=== PATIENT | female | born 1990 | race Caucasian/White ===

== ENCOUNTER 2016-09-29 12:45 | Outpatient (CLI) | END 2016-09-29 12:46 | disposition home or self-care (01) ==

== ENCOUNTER 2016-10-29 06:12 | Day surgery (SDC) | payer MEDICAID ==
[2016-10-29] MEDS ORDERED: LACTATED RINGERS 1,000 ML IV ONE (06:57)
[2016-10-29] MEDS ORDERED: fentaNYL 250 MCG/5 ML VIAL IVP ONE (09:05)
[2016-10-29] MEDS ORDERED: MIDAZOLAM 2 MG/2 ML VIAL IVP ONE (09:05)
== END 2016-10-29 06:13 | disposition home or self-care (01) ==
PROC: 0DBE8ZX Excision of Large Intestine, Via Natural or Artificial Opening Endoscopic, Diagnostic (ICD-10-PCS; 2016-10-29)
PROC: 0DBP8ZX Excision of Rectum, Via Natural or Artificial Opening Endoscopic, Diagnostic (ICD-10-PCS; principal; 2016-10-29 07:30)
DX: R10.9 Unspecified abdominal pain (principal); K59.09 Other constipation; R19.7 Diarrhea, unspecified; Z87.442 Personal history of urinary calculi; Z80.0 Family history of malignant neoplasm of digestive organs
CPT/HCPCS: 45380; 81025; J3010; J7120

== ENCOUNTER 2018-12-28 06:04 | Day surgery (SDC) | payer BC ==
[2018-12-28] MEDS ORDERED: LACTATED RINGERS 1,000 ML IV ONE ×3 (06:31→09:09)
[2018-12-28] MEDS ORDERED: ceFAZolin 2 GM/50 ML 0 GM/0 ML BAG IV ONE (06:36)
[2018-12-28] MEDS ORDERED: ceFAZolin 2 GM/50 ML 2 GM/50 ML BAG IV ONE (06:40)
--- NOTE | 2018-12-28 06:56 | ANESTHESIA ---
Pre-Anesthesia VS, & Labs - Diagnosis desires sterilization - Procedure laparoscopic salpingectomy Vital Signs: Temp Pulse Resp BP Pulse Ox 36.7 C 108 H 12 118/82 H 96 12/28/18 06:32 12/28/18 06:32 12/28/18 06:32 12/28/18 06:32 12/28/18 06:32 Height 5 ft 3 in Weight (kg) 62.2 kg Body Mass Index 20.3 - NPO >8 hours - Is Patient ?: No - Lab Results Lab results reviewed: Yes Home Medications and Allergies Home Medications: Ambulatory Orders Amitriptyline HCl 75 mg PO DAILY 12/23/18 diphenhydrAMINE [Benadryl] 25 mg PO Q4-6H PRN 12/23/18 Zolpidem [Ambien] 1 tab PO QPM PRN 10/28/16 Amitriptyline HCl 75 mg PO DAILY 12/23/18 diphenhydrAMINE [Benadryl] 25 mg PO Q4-6H PRN 12/23/18 Allergies/Adverse Reactions: Allergies Allergy/AdvReac Type Severity Reaction Status Date / Time meperidine HCl * Allergy Mild Hives Verified 04/22/16 14:48 [From Demerol] Anes History & Medical History - Anesthetic History Anesthesia Complications: reports: No previous complications Family history of Anesthesia Complications: Denies Family history of Malignant Hyperthermia: Denies - Medical History Cardiovascular: reports: None Pulmonary: reports: None Gastrointestinal: reports: None Urinary: reports: Kidney stones Musculoskeletal: reports: None Endocrine/Autoimmune: reports: None Blood Disorders: reports: None Skin: reports: None Smoking Status: Former smoker Psychosocial: reports: Other (insomnia) - Surgical History Eyes Ears Nose Throat (EENT): Myringotomy (tubes), Other Urologic: Kidney stents, Ureterolithotomy (stones) Exam General: Alert, Oriented x3, Cooperative, No acute distress Dental: Other (cap) Mouth Openin Fingerbreadth Neck Mobility: Normal Mallampati classification: II Thyromental Distance: 4-6 cm Respiratory: Lungs clear, Normal breath sounds, No respiratory distress, No accessory muscle use Cardiovascular: Regular rate, Normal S1, Normal S2, No murmurs Mental/Cognitive Status: Alert/Oriented X3, Normal for patient Plan Anesthesia Type: General Consent for Procedure(s) Verified and Reviewed: Yes Code Status: Attempt Resuscitation ASA classification: 2-Mild systemic disease Is this case an emergency?: No
[2018-12-28 06:57] LABS: BASOPHILS # (AUTO) 0.1 10^3/uL (0.0-0.1); BASOPHILS % (AUTO) 1.4 %; EOSINOPHILS # (AUTO) 0.4 10^3/uL (0.0-0.7); EOSINOPHILS % (AUTO) 4.4 %; HGB - HEMOGLOBIN 13.3 g/dL (12.0-16.0); LYMPHOCYTES # (AUTO) 2.2 10^3/uL (1.5-3.5); LYMPHOCYTES % (AUTO) 24.2 %; MEAN CORPUSCULAR HEMOGLOBIN 27.5 pg (27.0-31.0); MEAN CORPUSCULAR VOLUME 83.5 fL (81.0-99.0); MEAN PLATELET VOLUME 8.1 fL (7.9-10.8); MONOCYTES # (AUTO) 0.6 10^3/uL (0.0-1.0); MONOCYTES % (AUTO) 6.2 %; NEUTROPHILS # (AUTO) 5.8 10^3/uL (1.5-6.6); NEUTROPHILS % (AUTO) 63.8 %; PLT - PLATELET COUNT 412 10^3/uL (130-450); RED BLOOD COUNT 4.82 10^6/uL (4.20-5.40); RED CELL DISTRIBUTION WIDTH 15.1 % (12.0-15.0); WHITE BLOOD COUNT 9.2 x10^3/uL (4.8-10.8)
[2018-12-28 07:01] LABS: HCG UR QUAL NEGATIVE
[2018-12-28 07:06] LABS: CREATININE 0.8 mg/dL (0.4-1.0)
[2018-12-28] MEDS ORDERED: BUPIVACAINE 0.25%-EPI 1:200000 PF 30 ML VIAL ONE (07:16)
[2018-12-28] MEDS ORDERED: BUPIVACAINE 0.25%-EPI 1:200000 PF 10 ML VIAL SUBQ ONE (08:23)
[2018-12-28] MEDS ORDERED: NEOSTIGMINE 1 MG/1 ML 10 ML MDV IVP ONE (08:45)
[2018-12-28] MEDS ORDERED: ROCURONIUM 50 MG/5 ML VIAL IVP ONE (08:45)
[2018-12-28] MEDS ORDERED: KETOROLAC 30 MG/ML VIAL IVP ONE (08:45)
[2018-12-28] MEDS ORDERED: PROPOFOL 200 MG/20 ML VIAL IVP ONE (08:45)
[2018-12-28] MEDS ORDERED: ePHEDrine 50 MG/ML VIAL IVP ONE (08:45)
[2018-12-28] MEDS ORDERED: ceFAZolin 2 GM/50 ML BAG IV ONE (08:45)
[2018-12-28] MEDS ORDERED: fentaNYL 100 MCG/2 ML VIAL IVP ONE (08:45)
[2018-12-28] MEDS ORDERED: ACETAMINOPHEN 1,000 MG/100 ML 100 ML IV ONE (08:45)
[2018-12-28] MEDS ORDERED: ONDANSETRON 4 MG/2 ML VIAL IVP ONE (08:45)
[2018-12-28] MEDS ORDERED: LIDOCAINE-MPF 2% 5 ML VIAL IM ONE (08:45)
[2018-12-28] MEDS ORDERED: GLYCOPYRROLATE 1 MG/5 ML VIAL IVP ONE (08:45)
[2018-12-28] MEDS ORDERED: LORazepam 2 MG/ML VIAL IVP PRN (09:01)
[2018-12-28] MEDS ORDERED: oxyCODONE 5 MG TABLET PO PRN (09:01)
[2018-12-28] MEDS ORDERED: ONDANSETRON 4 MG/2 ML VIAL IVP PRN (09:01)
[2018-12-28] MEDS ORDERED: HYDROmorphone 0.5 MG/0.5 ML SYRINGE IVP PRN (09:01)
--- NOTE | 2018-12-28 09:06 | OPERATIVE REPORT ---
Operative Report - General Procedure Date: 12/28/18 Planned Procedure: Bilateral Laproscopic Salpingectomy Pre-Op Diagnosis: undesired fertility Procedure Performed: Bilateral Laproscopic Salpingectomy Post Op Diagnosis: undesired fertility - Procedure Note Primary Surgeon: Brian Navarro MD Anesthesia Provider: Himanshu Leal MD Anesthesia Technique: General ET tube Pathology: Bilateral Tubes IV Fluids (mL): 1,000 Estimated Blood Loss (mL): 5 Urine Output (mL): 50 Complications: none - Other Other Information/Narrative: #[id number]
[2018-12-28] MEDS ORDERED: HYDROmorphone 0.5 MG/0.5 ML SYRINGE ONE (09:21)
--- NOTE | 2018-12-28 09:39 | OPERATIVE REPORT ---
DATE OF SERVICE: 12/28/2018 Physician: Brian Navarro MD PREOPERATIVE DIAGNOSIS: Undesired fertility. POSTOPERATIVE DIAGNOSIS: Undesired fertility. PROCEDURE PERFORMED: Bilateral laparoscopic salpingectomy. SURGEON: Brian Navarro MD ANESTHESIA: General via endotracheal tube. ANESTHESIOLOGIST: Himanshu Meek MD ESTIMATED BLOOD LOSS: 5 mL INTRAVENOUS FLUIDS: 1000 mL URINE OUT: 50 mL FINDINGS: Upon entering the abdominal cavity, the uterus appeared to be free of any injury or diseas e. The tubes were noted to be bilaterally free of adhesions. The appendix appeared to be normal. T he cul-de-sac was clear of adhesions or endometriosis. The ovaries appeared to be somewhat enlarged in size. Both tubes were removed without incident, without evidence of any excessive blood loss. DESCRIPTION OF PROCEDURE: Following adequate endotracheal anesthesia, patient was placed in dorsal l ithotomy position. Timeout was then performed at this time. At this point, she was prepped and drap ed in the usual fashion. A speculum was then placed in the vagina. The cervix was visualized, grasp ed with a single-tooth tenaculum. The cervix and the manipulator were placed in the cervical os, fol lowing which the speculum was removed. The slice plug cutter operator's gloves were changed at this point. Following local anesthesia with 0.25% Marcaine, a stab wound was made in the subumbilical area with a #11 blade . A 5 mm trocar and sheath were introduced under direct visualization on a single pass. Left and ri ght lower quadrant incisions were made following local anesthesia with 0.25% Marcaine with epinephrin e, and then skin incisions were made with an 11-blade and 2 other additional trocars were placed on a single pass. The pelvis was inspected. The liver was inspected, as well as the appendix. The righ t fallopian tube was grasped at the fimbriated end. Then, utilizing the LigaSure, it was cauterized and dissected free from the ovary. Care was taken to stay as close to the tube as possible to decrea se the risk of injury to the ovarian vessels. The mesosalpinx was then cauterized as close to the tu be as possible, all the way up to the cornu. At this point, the cornual area was cauterized and nation sected. The tube was removed through the port without difficulty. The cautery site was inspected. There was no evidence of any bleeding. The left tube was treated in an identical fashion. The mesos alpinx was inspected for bleeding; none was noted. There was no evidence of any injury to the ovaria n vessels. The pelvis was inspected. The ureter on the right-hand side appeared to be somewhat prom inent, otherwise did not appear to be dilated. At this point, the procedure was ended. Both left an d right lower trocars were removed under direct visualization. The CO2 was allowed to escape as much as possible through the subumbilical port and, following this, the port was removed. Both incisions were closed utilizing 4-0 Monocryl subcuticular and then Dermabond was used. The instruments were t hen removed from the vagina. Patient tolerated the procedure well and was taken to Recovery in stabl e condition. Sponge and needle counts were correct. TD: 12/28/2018 09:19
[2018-12-28] MEDS ORDERED: oxyCODONE 5 MG TABLET ONE (09:40)
[2018-12-28 11:00] VITALS: BP 124/78
== END 2018-12-28 06:05 | disposition home or self-care (01) ==
LOC: SDS 06:04
PROVIDERS: ATTEND Obstetrics & Gynecology
PROC: 0UT74ZZ Resection of Bilateral Fallopian Tubes, Percutaneous Endoscopic Approach (ICD-10-PCS; principal; 2018-12-28 07:30)
DX: Z30.2 Encounter for sterilization (principal); Z87.39 Personal history of other diseases of the musculoskeletal system and connective tissue; Z87.442 Personal history of urinary calculi; R33.9 Retention of urine, unspecified; Z98.890 Other specified postprocedural states; Z87.891 Personal history of nicotine dependence
CPT/HCPCS: 51702; 58661; 80048; 81025; 85025; 99282; 99283; A9270; J0131; J0690; J1170; J7120

== ENCOUNTER 2018-12-28 21:46 | Emergency (ER) | payer BC ==
--- NOTE | 2018-12-28 21:56 | ED Physician Documentation ---
History of Present Illness - Stated complaint Stated Complaint: FEMALE /POST SURGERY - Chief complaint Chief Complaint: Abd Pain - History obtained from History obtained from: Patient, Family - History of Present Illness Timing: Today Pain level max: 7 Pain level now: 5 - Additonal information Additional information: 28-year-old female is status post tubal ligation earlier today. Since that time is been unable to void well. Having lower abdominal pain. No fevers. No vomiting. 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 : Kidney stones HEENT: Chronic vision loss, Other Psych: Depression, Anxiety, Panic attacks Musculoskeletal: None Derm: None - Past Surgical History Past Surgical History: Yes HEENT: Myringotomy (tubes), Other - Present Medications Home Medications: Ambulatory Orders Medication Instructions Recorded Confirmed Zolpidem [Ambien] 1 tab PO QPM PRN 10/28/16 12/28/18 Amitriptyline HCl 75 mg PO DAILY 12/23/18 12/28/18 diphenhydrAMINE [Benadryl] 25 mg PO Q4-6H PRN 12/23/18 12/28/18 - Allergies Allergies/Adverse Reactions: Allergies Allergy/AdvReac Type Severity Reaction Status Date / Time meperidine HCl * Allergy Mild Hives Verified 12/28/18 21:59 [From Demerol] - Social History Does the pt smoke?: No Smoking Status: Former smoker Does the pt drink ETOH?: Yes Does the pt have substance abuse?: No - Immunizations Immunizations are current?: Yes - POLST Patient has POLST: No PD ED PE NORMAL - Vitals Vital signs reviewed: Yes - General General: Alert and oriented X 3, No acute distress - HEENT HEENT: Moist mucous membranes - Cardiac Cardiac: RRR - Respiratory Respiratory: No respiratory distress, Clear bilaterally - Abdomen Abdomen: Soft, Other (Tender to palpation suprapubic) - Derm Derm: Warm and dry - Extremities Extremities: No edema - Neuro Neuro: Alert and oriented X 3 Results - Vitals Vitals: Vital Signs - 24 hr 12/28/18 21:50 Temperature 36.6 C Heart Rate 120 H Respiratory 20 Rate Blood Pressure 133/90 H O2 Saturation 98 Oxygen O2 Source Room air PD MEDICAL DECISION MAKING - ED course Complexity details: re-evaluated patient, considered differential, d/w patient, d/w senior solutions consultant (Dr. Navarro recommends betancourt catheter for home and follow up in office.) ED course: 28-year-old female with acute urinary retention status post surgery today. Betancourt catheter placed and feels better. Leg bag applied. Will follow up with gynecology for removal. Patient counseled regarding signs and symptoms for which I believe and urgent re-evaluation would be necessary. Patient with good understanding of and agreement to plan and is comfortable going home at this time This document was made in part using voice recognition software. While efforts are made to proofread this document, sound alike and grammatical errors may occur. Departure - Departure Disposition: 01 Home, Self Care Clinical Impression: Acute urinary retention Condition: Good Instructions: ED Catheter Care Betancourt, ED Retention Urinary Female Follow-Up: Re Ledezma DNP [Primary Care Provider] - Brian Navarro MD [Provider Admit Priv/Credential] - Comments: Follow-up with Dr. Navarro in 1-2 days for catheter removal and voiding trial. This is likely secondary to the anesthesia. Return if you worsen.
[2018-12-28 21:59] VITALS: BP 133/90
[2018-12-28] MEDS ORDERED: oxyCODONE 5 MG TABLET PO STA (22:25)
[2018-12-28] MEDS ORDERED: ACETAMINOPHEN 325 MG TABLET PO STA (22:25)
== END 2018-12-28 22:48 | disposition home or self-care (01) ==
LOC: ED 21:46
DX: R33.9 Retention of urine, unspecified (principal); Z98.890 Other specified postprocedural states; Z87.891 Personal history of nicotine dependence
CPT/HCPCS: 51702; 99282; 99283

== ENCOUNTER 2018-12-29 03:58 | Observation (INO) | payer BC ==
--- NOTE | 2018-12-29 04:11 | ED Physician Documentation ---
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 No: Fever, Hematemesis Improved by: Other (no ameliorating factors) Worsened by: Moving, Position Recently seen: Emergency Dept, Surgery - Additonal information Additional information: underwent tubal ligation yesterday. presented to this ED last night for urinary retention, betancourt catheter was placed and presenting symptoms resolved. 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 She has some lower abdominal/pelvic pain that is no worse than earlier tonight. Review of Systems Constitutional: denies: Fever, Chills, Sweats Cardiac: reports: Chest pain / pressure. denies: Palpitations, Pedal edema Respiratory: reports: Reviewed and negative GI: reports: Abdominal Pain, Nausea, Vomiting. 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 : Kidney stones HEENT: Chronic vision loss, Other Psych: Depression, Anxiety, Panic attacks Musculoskeletal: None Derm: None - Past Surgical History Past Surgical History: Yes /CT SCAN TECHNOLOGIST: Tubal ligation HEENT: Myringotomy (tubes), Other - Present Medications Home Medications: Ambulatory Orders Medication Instructions Recorded Confirmed Zolpidem [Ambien] 1 tab PO QPM PRN 10/28/16 12/28/18 Amitriptyline HCl 75 mg PO DAILY 12/23/18 12/28/18 diphenhydrAMINE [Benadryl] 25 mg PO Q4-6H PRN 12/23/18 12/28/18 - Allergies Allergies/Adverse Reactions: Allergies Allergy/AdvReac Type Severity Reaction Status Date / Time meperidine HCl * Allergy Mild Hives Verified 12/29/18 04:11 [From Demerol] - Social History Does the pt smoke?: No Smoking Status: Former smoker Does the pt drink ETOH?: Yes Does the pt have substance abuse?: No - Immunizations Immunizations are current?: Yes - POLST Patient has POLST: No PD ED PE NORMAL - Vitals Vital signs reviewed: Yes - General General: Alert and oriented X 3, Well developed/nourished, Other (actively vomiting during HPI (most of HPI from spouse, but patient is able to answer some questions with brief answers)) - HEENT HEENT: PERRL, EOMI - Neck Neck: Supple, no meningeal sign - Cardiac Cardiac: No murmur - Respiratory Respiratory: No respiratory distress, Clear bilaterally - Abdomen Abdomen: Soft, Non distended, Other (mild tenderness across lower abdomen c/w recent procedure. there is no tenderness across mid/upper abdomen, no rebound or guarding; surgical sites (bilateral lower quadrants and umbilicus) are C/D/I with tissue adhesive layer in place) - Back Back: No CVA TTP - Derm Derm: Normal color, Warm and dry - Extremities Extremities: No edema PD ED PE EXPANDED - Cardiac Cardiac: Tachy, Regular Rhythm Results - Vitals Vitals: Vital Signs - 24 hr 12/29/18 12/29/18 12/29/18 04:00 04:35 04:57 Temperature 36.3 C L Heart Rate 136 H 130 H 115 H Respiratory 24 13 10 L Rate Blood Pressure 135/84 H 126/66 126/66 O2 Saturation 96 95 93 Oxygen O2 Source Room air - Labs Labs: Laboratory Tests 12/29/18 12/29/18 04:20 04:20 WBC 12.9 H RBC 4.25 Hgb 11.7 L Hct 34.9 L MCV 82.0 MCH 27.6 MCHC 33.6 RDW 15.1 H Plt Count 448 MPV 8.3 Neut # (Auto) 7.7 H Lymph # (Auto) 4.0 H [place] # (Auto) 0.8 Eos # (Auto) 0.4 Baso # (Auto) 0.2 H Absolute Nucleated RBC 0.00 Nucleated RBC % 0.0 Sodium 136 Potassium 3.5 Chloride 102 Carbon Dioxide 24 Anion Gap 10.0 BUN 8 Creatinine 0.7 Estimated GFR (MDRD) 99 Glucose 154 H Calcium 8.8 Total Bilirubin 0.8 AST 20 ALT 12 Alkaline Phosphatase 44 Total Protein 6.9 Albumin 3.6 Globulin 3.3 Albumin/Globulin Ratio 1.1 Lipase 27 PD MEDICAL DECISION MAKING - ED course Complexity details: reviewed old records, reviewed results, re-evaluated p atient, considered differential, d/w patient ED course: After over 1 liter IV NS and 8mg IV zofran, patient reports some improvement in symptoms, although still very nauseas and dizzy with movement. She continues to be tachycardic, although this improved from 140s ST to 110s-120s. She would benefit from ongoing IV hydration, antinauseants, and further observation in the hospital before considering d/c home. D/W Dr. Navarro, will admit to his service. Departure - Departure Disposition: ED Place in Observation Clinical Impression: Vomiting Qualifiers: Vomiting type: unspecified Vomiting Intractability: intractable Nausea presence: with nausea Qualified Code(s): R11.2 - Nausea with vomiting, unspecified Condition: Stable
[2018-12-29] MEDS ORDERED: ONDANSETRON 4 MG/2 ML VIAL IVP STA (04:22)
[2018-12-29] MEDS ORDERED: SODIUM CHLORIDE 0.9% 1,000 ML IV STA (04:22)
[2018-12-29] MEDS ORDERED: ONDANSETRON 4 MG/2 ML VIAL ONE (04:30)
[2018-12-29 04:31] LABS: BASOPHILS # (AUTO) 0.2 10^3/uL (0.0-0.1); BASOPHILS % (AUTO) 1.2 %; EOSINOPHILS # (AUTO) 0.4 10^3/uL (0.0-0.7); EOSINOPHILS % (AUTO) 2.9 %; HGB - HEMOGLOBIN 11.7 g/dL (12.0-16.0); LYMPHOCYTES % (AUTO) 30.7 %; MEAN CORPUSCULAR HEMOGLOBIN 27.6 pg (27.0-31.0); MEAN CORPUSCULAR HGB CONC 33.6 g/dL (32.0-36.0); MEAN PLATELET VOLUME 8.3 fL (7.9-10.8); MONOCYTES # (AUTO) 0.8 10^3/uL (0.0-1.0); NEUTROPHILS # (AUTO) 7.7 10^3/uL (1.5-6.6); NEUTROPHILS % (AUTO) 59.2 %; PLT - PLATELET COUNT 448 10^3/uL (130-450); RED BLOOD COUNT 4.25 10^6/uL (4.20-5.40); RED CELL DISTRIBUTION WIDTH 15.1 % (12.0-15.0); WHITE BLOOD COUNT 12.9 x10^3/uL (4.8-10.8)
[2018-12-29 04:48] LABS: ALBUMIN 3.6 g/dL (3.2-5.5); ALBUMIN/GLOBULIN RATIO 1.1 (1.0-2.2); BILIRUBIN,TOTAL 0.8 mg/dL (0.2-1.0); CALCIUM 8.8 mg/dL (8.5-10.3); CREATININE 0.7 mg/dL (0.4-1.0); TOTAL PROTEIN 6.9 g/dL (6.7-8.2)
[2018-12-29] MEDS ORDERED: SODIUM CHLORIDE 0.9% 1,000 ML IV ONE (05:29)
[2018-12-29] MEDS ORDERED: PROMETHAZINE INJ 25 MG in SODIUM CHLORIDE 0.9% 50 ML IV STA (05:44)
[2018-12-29] MEDS ORDERED: oxyCODONE 5 MG TABLET PO STA (05:55)
[2018-12-29] MEDS ORDERED: LACTATED RINGERS 1,000 ML IV SCH ×2 (06:00→15:00)
[2018-12-29] MEDS ORDERED: SODIUM CHLORIDE FLUSH 0.9% 10 ML SYRINGE ONE (06:49)
[2018-12-29 08:02] LABS: MEAN CORPUSCULAR HEMOGLOBIN 27.7 pg (27.0-31.0); MEAN CORPUSCULAR VOLUME 81.5 fL (81.0-99.0); MEAN PLATELET VOLUME 8.3 fL (7.9-10.8); RED BLOOD COUNT 4.34 10^6/uL (4.20-5.40); RED CELL DISTRIBUTION WIDTH 15.2 % (12.0-15.0); WHITE BLOOD COUNT 16.7 x10^3/uL (4.8-10.8)
[2018-12-29] MEDS ORDERED: ALPRAZolam 0.25 MG TABLET PO PRN (08:08)
[2018-12-29] MEDS ORDERED: fentaNYL 100 MCG/2 ML VIAL IVP PRN (08:09)
[2018-12-29] MEDS ORDERED: IOVERSOL 320 100 ML VIAL IVP ONE ×2 (08:19→08:51)
[2018-12-29 08:37] LABS: BILIRUBIN,URINE NEGATIVE (NEGATIVE); GLUCOSE, URINE (UA) NEGATIVE (NEGATIVE); KETONES,URINE (UA) TRACE mg/dL (NEGATIVE); LEUKOCYTE ESTERASE, URINE NEGATIVE (NEGATIVE); NITRITE,URINE NEGATIVE (NEGATIVE); OCCULT BLOOD,URINE NEGATIVE (NEGATIVE); PH,URINE 7.5 PH (5.0-7.5); PROTEIN,URINE NEGATIVE (NEGATIVE); UROBILINOGEN,URINE 0.2 (NORMAL) E.U./dL (NORMAL)
[2018-12-29 08:41] LABS: CLARITY,URINE CLEAR (CLEAR)
[2018-12-29] MEDS ORDERED: KETOROLAC 30 MG/ML VIAL IVP PRN (08:55)
--- NOTE | 2018-12-29 09:01 | PROVIDER PROGRESS NOTE ---
Subjective - General Admit Date: 12/29/18 Procedure Date: 12/28/18 Post Op Days: 1 Procedure Performed: Laptoscopic Bilateral Salpingectomy - Review of Systems Wound/Incisions: positive: Healing well Gastrointestinal: positive: Nausea, Abdominal pain (Pt C/O lower abdominal pain. 5/10 experiencing nausia with vomiting this AM) Genitourinary: positive: Urgency (feels the need to void betancourt draining clear urine) Objective - Patient Data Reviewed Vital Signs: Yes Vital Signs: Vital Signs x48h Temp Pulse Pulse Resp BP BP Pulse Ox 12/29/18 08:34 36.4 C L 122 H 18 122/77 98 12/29/18 06:45 36.3 C L 135 H 18 126/75 100 12/29/18 06:07 112 H 10 L 117/73 98 12/29/18 04:57 115 H 10 L 126/66 93 12/29/18 04:35 130 H 13 126/66 95 12/29/18 04:00 36.3 C L 136 H 24 135/84 H 96 Weight: Weight 12/27/18 12/28/18 12/29/18 23:59 23:59 23:59 Weight (kg) 61.2 kg Intake & Output: Intake and Output Totals x24h 12/27/18 12/28/18 12/29/18 23:59 23:59 23:59 Intake Total 2051 Output Total 1475 Balance 576 - Lab Results Lab Results: 12/29/18 07:36 12/29/18 04:20 Other Lab Results: Lab Results x24hrs 12/29/18 12/29/18 12/29/18 Range/Units 08:30 07:36 04:20 WBC 16.7 H (4.8-10.8) x10^3/uL RBC 4.34 (4.20-5.40) 10^6/uL Hgb 12.0 (12.0-16.0) g/dL Hct 35.4 L (37.0-47.0) % MCV 81.5 (81.0-99.0) fL MCH 27.7 (27.0-31.0) pg MCHC 34.0 (32.0-36.0) g/dL RDW 15.2 H (12.0-15.0) % Plt Count 386 (130-450) 10^3/uL MPV 8.3 (7.9-10.8) fL Neut # (Auto) (1.5-6.6) 10^3/uL Lymph # (Auto) (1.5-3.5) 10^3/uL [place] # (Auto) (0.0-1.0) 10^3/uL Eos # (Auto) (0.0-0.7) 10^3/uL Baso # (Auto) (0.0-0.1) 10^3/uL Absolute Nucleated RBC x10^3/uL Nucleated RBC % /100WBC Sodium 136 (135-145) mmol/L Potassium 3.5 (3.5-5.0) mmol/L Chloride 102 (101-111) mmol/L Carbon Dioxide 24 (21-32) mmol/L Anion Gap 10.0 (6-13) BUN 8 (6-20) mg/dL Creatinine 0.7 (0.4-1.0) mg/dL Estimated GFR (MDRD) 99 (>89) Glucose 154 H (70-100) mg/dL Calcium 8.8 (8.5-10.3) mg/dL Total Bilirubin 0.8 (0.2-1.0) mg/dL AST 20 (10-42) IU/L ALT 12 (10-60) IU/L Alkaline Phosphatase 44 (42-121) IU/L Total Protein 6.9 (6.7-8.2) g/dL Albumin 3.6 (3.2-5.5) g/dL Globulin 3.3 (2.1-4.2) g/dL Albumin/Globulin Ratio 1.1 (1.0-2.2) Lipase 27 (22-51) U/L Urine Color LIGHT YELLOW Urine Clarity CLEAR (CLEAR) Urine pH 7.5 (5.0-7.5) PH Ur Specific [place] <=1.005 (1.002-1.030) Urine Protein NEGATIVE (NEGATIVE) mg/dL Urine Glucose (UA) NEGATIVE (NEGATIVE) mg/dL Urine Ketones TRACE (NEGATIVE) mg/dL Urine Occult Blood NEGATIVE (NEGATIVE) Urine Nitrite NEGATIVE (NEGATIVE) Urine Bilirubin NEGATIVE (NEGATIVE) Urine Urobilinogen 0.2 (NORMAL) (NORMAL) E.U./dL Ur Leukocyte Esterase NEGATIVE (NEGATIVE) Ur Microscopic Review NOT INDICATED Urine Culture Comments NOT INDICATED 12/29/18 Range/Units 04:20 WBC 12.9 H (4.8-10.8) x10^3/uL RBC 4.25 (4.20-5.40) 10^6/uL Hgb 11.7 L (12.0-16.0) g/dL Hct 34.9 L (37.0-47.0) % MCV 82.0 (81.0-99.0) fL MCH 27.6 (27.0-31.0) pg MCHC 33.6 (32.0-36.0) g/dL RDW 15.1 H (12.0-15.0) % Plt Count 448 (130-450) 10^3/uL MPV 8.3 (7.9-10.8) fL Neut # (Auto) 7.7 H (1.5-6.6) 10^3/uL Lymph # (Auto) 4.0 H (1.5-3.5) 10^3/uL [place] # (Auto) 0.8 (0.0-1.0) 10^3/uL Eos # (Auto) 0.4 (0.0-0.7) 10^3/uL Baso # (Auto) 0.2 H (0.0-0.1) 10^3/uL Absolute Nucleated RBC 0.00 x10^3/uL Nucleated RBC % 0.0 /100WBC Sodium (135-145) mmol/L Potassium (3.5-5.0) mmol/L Chloride (101-111) mmol/L Carbon Dioxide (21-32) mmol/L Anion Gap (6-13) BUN (6-20) mg/dL Creatinine (0.4-1.0) mg/dL Estimated GFR (MDRD) (>89) Glucose (70-100) mg/dL Calcium (8.5-10.3) mg/dL Total Bilirubin (0.2-1.0) mg/dL AST (10-42) IU/L ALT (10-60) IU/L Alkaline Phosphatase (42-121) IU/L Total Protein (6.7-8.2) g/dL Albumin (3.2-5.5) g/dL Globulin (2.1-4.2) g/dL Albumin/Globulin Ratio (1.0-2.2) Lipase (22-51) U/L Urine Color Urine Clarity (CLEAR) Urine pH (5.0-7.5) PH Ur Specific [place] (1.002-1.030) Urine Protein (NEGATIVE) mg/dL Urine Glucose (UA) (NEGATIVE) mg/dL Urine Ketones (NEGATIVE) mg/dL Urine Occult Blood (NEGATIVE) Urine Nitrite (NEGATIVE) Urine Bilirubin (NEGATIVE) Urine Urobilinogen (NORMAL) E.U./dL Ur Leukocyte Esterase (NEGATIVE) Ur Microscopic Review Urine Culture Comments - Imaging Results Radiology Imaging: positive: Prelim report reviewed (CT negative for hematoma, and bowel perforation) - Current Medications Current Medications: Current Medications Generic Name Dose Route Start Last Admin Trade Name Freq PRN Reason Stop Dose Admin Lactated Ringer's 1,000 mls @ 125 mls/hr 12/29/18 06:00 12/29/18 06:51 Lr IV 125 mls/hr .Q8H JAH Administration - Physical Exam Wound/Incisions: positive: Healing well General Appearance: positive: Moderate distress Respiratory: positive: Chest non-tender, No respiratory distress, Breath sounds nml Cardiovascular: positive: Regular rate & rhythm (Tachy cardia), No murmur, No gallop Abdomen: positive: Nml bowel sounds, No distention, Tenderness (Lower abdomin) Back: negative: CVA tenderness (R), CVA tenderness (L) Extremities: negative: Calf tenderness Impression/Plan - Problem List Problem List: POD# [address] op pain negative CT urinary retension Pain control
--- NOTE | 2018-12-29 09:25 | CT Report ---
Reason: POST OP ABDOMINAL PAIN. Procedure Date: 12/29/2018 Accession Number: [id number] / [id number] Procedure: CT - Abdomen/Pelvis W CPT Code: FULL RESULT: EXAM: CT ABDOMEN AND PELVIS EXAM DATE: 12/29/2018 08:45 AM. CLINICAL HISTORY: POST OP ABDOMINAL PAIN. COMPARISONS: 09/29/2016 TECHNIQUE: Routine helical CT imaging was performed through the abdomen and pelvis. IV contrast: CE. Enteric contrast: No. Reconstructions: Coronal and sagittal. In accordance with CT protocol optimization, one or more of the following dose reduction techniques were utilized for this exam: automated exposure control, adjustment of mA and/or KV based on patient size, or use of iterative reconstructive technique. FINDINGS: Lung Bases: Hypoventilatory changes in the dependent lungs. No pleural effusion. Liver: Normal. No masses. Gallbladder/Bile Ducts: Contracted. No biliary ductal dilatation. Spleen: Normal. Pancreas: Normal. Adrenal Glands: Normal. Kidneys: No solid masses or stones. Uniform enhancement. Mildly prominent right renal pelvis. Peritoneal Cavity/Bowel: Pneumoperitoneum and subcutaneous emphysema consistent with a history of recent surgery. No abnormal collections or pathologic adenopathy. Small amount of free fluid in the pelvis. The appendix is seen and appears normal. Moderate amount of right colon fecal material Pelvic Organs: Air and catheter within the bladder. Unremarkable appearing uterus and ovaries. Vasculature: No aneurysms or other significant abnormality. Bones: No significant abnormality. Other: None. IMPRESSION: Pneumoperitoneum and subcutaneous emphysema with a small amount of pelvic free fluid consistent with recent surgery. Otherwise unremarkable CT abdomen and pelvis. [facility]
[2018-12-29 15:28] VITALS: BP 102/65
== END 2018-12-29 17:25 | disposition home or self-care (01) ==
LOC: ED 03:58 → MS2 05:47
PROVIDERS: ADMIT Obstetrics & Gynecology; ATTEND Obstetrics & Gynecology
DX: G89.18 Other acute postprocedural pain (principal); R33.9 Retention of urine, unspecified; R11.2 Nausea with vomiting, unspecified; H54.7 Unspecified visual loss; F32.9 Major depressive disorder, single episode, unspecified; F41.0 Panic disorder [episodic paroxysmal anxiety]; Z87.442 Personal history of urinary calculi; Z87.891 Personal history of nicotine dependence
CPT/HCPCS: 36415; 74177; 80053; 81003; 83690; 85025; 85027; 96361; 96365; 96375; 99284; A9270; G0378; J7040; J7120; Q9967; 81001; 87086; 96374

== ENCOUNTER 2018-12-30 08:00 | Outpatient (CLI) | payer BC ==
[2018-12-30 19:16] LABS: BILIRUBIN,URINE NEGATIVE (NEGATIVE); GLUCOSE, URINE (UA) NEGATIVE (NEGATIVE); KETONES,URINE (UA) NEGATIVE (NEGATIVE); LEUKOCYTE ESTERASE, URINE NEGATIVE (NEGATIVE); NITRITE,URINE NEGATIVE (NEGATIVE); OCCULT BLOOD,URINE TRACE-INTA (NEGATIVE); PROTEIN,URINE NEGATIVE (NEGATIVE); UROBILINOGEN,URINE 0.2 (NORMAL) E.U./dL (NORMAL)
[2018-12-30 19:23] LABS: CLARITY,URINE CLEAR (CLEAR)
[2018-12-30 19:24] LABS: BACTERIA,URINE Rare /HPF (None Seen); RBC,URINE 0-5 /HPF (0-5); SQUAMOUS EPITHELIAL CELL,UR MOD Squamous (<= Few)
== END 2018-12-30 23:59 | disposition home or self-care (01) ==
LOC: LAB.R 08:00
PROVIDERS: ATTEND Obstetrics & Gynecology
DX: R33.9 Retention of urine, unspecified (principal); Z98.890 Other specified postprocedural states
CPT/HCPCS: 81001; 87086

== ENCOUNTER 2020-06-04 11:24 | Outpatient (CLI) | payer BC, MEDICAID ==
[2020-06-04 14:51] LABS: BASOPHILS # (AUTO) 0.1 10^3/uL (0.0-0.1); BASOPHILS % (AUTO) 0.9 %; EOSINOPHILS # (AUTO) 0.1 10^3/uL (0.0-0.7); HGB - HEMOGLOBIN 12.3 g/dL (12.0-16.0); LYMPHOCYTES # (AUTO) 1.7 10^3/uL (1.5-3.5); LYMPHOCYTES % (AUTO) 25.6 %; MEAN CORPUSCULAR HEMOGLOBIN 28.6 pg (27.0-31.0); MEAN CORPUSCULAR HGB CONC 33.1 g/dL (32.0-36.0); MEAN CORPUSCULAR VOLUME 86.5 fL (81.0-99.0); MEAN PLATELET VOLUME 11.6 fL (7.9-10.8); MONOCYTES # (AUTO) 0.5 10^3/uL (0.0-1.0); MONOCYTES % (AUTO) 6.9 %; NEUTROPHILS # (AUTO) 4.4 10^3/uL (1.5-6.6); NEUTROPHILS % (AUTO) 65.2 %; PLT - PLATELET COUNT 380 10^3/uL (130-450); RED CELL DISTRIBUTION WIDTH 13.8 % (12.0-15.0); WHITE BLOOD COUNT 6.7 x10^3/uL (4.8-10.8)
[2020-06-04 15:16] LABS: ALBUMIN 4.2 g/dL (3.2-5.5); ALBUMIN/GLOBULIN RATIO 1.4 (1.0-2.2); BILIRUBIN,TOTAL 0.9 mg/dL (0.2-1.0); CALCIUM 9.3 mg/dL (8.5-10.3); CREATININE 0.6 mg/dL (0.4-1.0); TOTAL PROTEIN 7.1 g/dL (6.7-8.2)
== END 2020-06-04 11:25 | disposition home or self-care (01) ==
LOC: LAB.S 11:24
PROVIDERS: ATTEND Registered Nurse
DX: R06.83 Snoring (principal); F41.9 Anxiety disorder, unspecified; G47.00 Insomnia, unspecified; F32.9 Major depressive disorder, single episode, unspecified
CPT/HCPCS: 36415; 80053; 84443; 85025

== ENCOUNTER 2020-08-01 15:16 | Outpatient (CLI) | payer MEDICAID ==
[2020-08-01 16:29] VITALS: BP 105/74
--- NOTE | 2020-08-01 16:29 | SLEEP CARE CONSULTATION ---
Information from patient questionnaire entered by Aislinn Pack. I have reviewed and concur with the information entered by Aislinn Pack. This document represents the service I personally performed and the decisions made by me, Nancy Kent ARNP. History of Present Illness Service Date and Time: 08/01/2020 1516 Reason for Visit: New patient Chief Complaint: reports: Insomnia, Unrefreshed sleep, Snoring, Excessive daytime sleepiness, Frequent awakenings at night, Other (takes sleep aids to be able to sleep; go up to 4 days without sleeping). denies: Observed pauses in breathing, Fatigue Date of Onset: Always Usual bedtime: Varies Time it takes to fall asleep: A while if at all Snores at night: Yes (So I've been told) Observed to quit breathing while asleep: No Sleeps alone due to snoring: No Number of times waking at night: 3-5 Reasons for waking at night: reports: Other (No known reason). denies: Choking, Snoring, Gasping for air Toss, Turn, or Twitch while sleeping: Yes Recalls having dreams: Yes Usually gets out of bed at: Varies Feels refreshed in the morning: No Morning headache: Yes (sometimes; 3-4 times a week; last most of day without medication) Sleepy or fatigued during the day: Yes Ever fallen asleep while driving: No Takes day naps: Yes (sometimes; 1 every 2 weeks; lasts 30 minutes to 1.5 hours) Dreams during day naps: Yes (sometimes) Prior sleep studies: No Additional HPI information: I had the pleasure of seeing RICHARD LOZANO today regarding the possibility of her having a sleep disorder. Her current complaints are insomnia, snoring, unrefreshed sleep, and frequent night awakening. She has always had difficulties with getting a good night's sleep. She has been known to not sleep for days, the longest being about 4 days straight. She has a varied scheduled for work so she gets up anywhere from 5 AM to 8 AM. She goes to bed at various times as well. Her father has sleep apnea but she does not think he uses his breathing machine. Her sister also has sleep apnea but does not use a machine as far as she knows. - Parasomnia Symptoms Ever been unable to move upon waking from sleep: No Walks in sleep: No Talks in sleep: No Ever acted out dreams in sleep: Yes (rarely) Ever felt weak in the knees when startled or emotional: No Bothered by creepy, crawly, restless sensations in legs: No Problems with memory or concentration: Yes (both) Subjective Initial [place] Sleepiness Scale score: 6 (in 2019) Past Medical History Past Medical History: reports: Anxiety (insomnia). denies: Hypertension, Congestive Heart Failure, Diabetes, Coronary Heart Disease, Arrythmia, Hypothyroidism, Anemia, Depression, Mood disorder, GERD, Attention deficit Social History The patient's occupation is a [employer] and [employer]. Patient is and lives in [place]. Have you smoked in the past 12 months: Yes Cigarettes per day (20/pack): 20 Years of smokin Quit date: 2012 Smoking Pack Years: 5.0 Alcohol use: Yes Alcohol amount and frequency: 1 or 2, 3 times a week Caffeine use: Yes Caffeine amount and frequency: 3 times a week Family History Family history of sleep disordered breathing: Yes (Dad, sister) Family Hx Sleep Apnea: Father: Snoring, Sleep apnea - Untreated, Sibling: Snoring, Sleep apnea - Untreated Allergies and Home Medications Drug allergies reviewed: Yes (Demerol) Home medication list reviewed: Yes Allergy and home medication list: Zolpidem 5 mg 3x a week Review of Systems Weight loss over past 5 years: 30 Cardiovascular: denies: high blood pressure, palpitations, chest pain, irregular heart rate or pulse, leg or foot swelling Respiratory: denies: shortness of breath Gastrointestinal: denies: heartburn, difficulty swallowing Neurological: reports: headaches. denies: seizure, head trauma, speech dysfunction, gait or balance problems Psychiatric: reports: anxiety. denies: Attention Deficit Hyperactivity, depression, mood disorder, claustrophobia Ear/Nose/Throat: reports: wisdom teeth removed. denies: nasal congestion, sinus problems, nose bleeds, dry mouth/throat, injury to nose, tonsillectomy Endocrine: reports: sluggishness, too hot or cold Musculoskeletal: reports: joint pain, back pain Immunologic: reports: allergies to food or environment, other (TMJ) Physical Exam Blood Pressure: 105/74 Cuff size: wrist Heart Rate: 84 O2 Saturation: 99 Height: 5 ft 3 in Weight: 128 lb Body Mass Index: 22.6 BMI Classification: Healthy weight Neck circumference: 13.25 (inches) HEENT: No craniofacial malformation Nostrils: patent to airflow Turbinates: swollen Septum: midline Mouth and throat: narrow oropharynx Uvula visualization: 50% Mallampati Class II Tongue: normal in size Tonsils: 1+ Chin and jaw: normal size and position Neck: normal w/o lymphadenopathy or thyromegaly Heart: regular rate and rhythm Lungs: clear bilaterally Impression and Plan 1. Suspected Obstructive Sleep Apnea-Hypopnea Syndrome, as suggested by a history of loud and irregular snoring, morning headache, frequent awakening during the night, unrefreshed sleep, cognitive impairment, and excessive daytime sleepiness. I reviewed with patient that a narrow oropharynx and obesity are common predisposing factors for obstructive sleep apnea-hypopnea syndrome. I recommend proceeding to polysomnography to confirm the diagnosis and to assess severity. If the patient has significant sleep disordered breathing, a manual CPAP titration study will also be performed to find the optimal treatment pressure. I informed the patient of what the sleep studies involve and after some discussion, obtained agreement to proceed. The pathophysiology of obstructive sleep apnea-hypopnea syndrome was discussed with the patient and [facility] risks of cardiovascular and cerebrovascular disease if not treated. [facility] brochure for obstructive sleep apnea-hypopnea syndrome given and reviewed. Risks of drowsy driving discussed in detail and patient advised to avoid long distance driving and to pulley worker at the first sign of drowsiness. Patient agreed to plan. [facility] drowsy driving brochure given. * Schedule polysomnography +- manual CPAP titration study. * Avoid long distance driving or driving when feeling sleepy. * Avoid alcohol, sedative and muscle relaxant around bedtime. * Attempt to lose weight. * Review instructions provided by trained office staff on how to prepare for the sleep study. * Return for follow-up after sleep study completed. Visit Type: In Office Time Spent with Patient (minutes): 34 Provider Statement: I spent 100% of the Face to Face Visit with the patient with greater than 50% spent counseling the patient and coordination of care.
== END 2020-08-01 15:17 | disposition home or self-care (01) ==
LOC: SC 15:16
PROVIDERS: ATTEND Nurse Practitioner Family
DX: G47.10 Hypersomnia, unspecified (principal); R51.9 Headache, unspecified; G47.8 Other sleep disorders; R06.83 Snoring; R41.89 Other symptoms and signs involving cognitive functions and awareness
CPT/HCPCS: 99203; 99212

== ENCOUNTER 2020-09-01 19:56 | Outpatient (CLI) | payer MEDICAID | END 2020-09-01 19:57 | disposition home or self-care (01) | LOC: SC 19:56 | PROVIDERS: ATTEND Nurse Practitioner Family | DX: G47.10 Hypersomnia, unspecified (principal); G47.8 Other sleep disorders; G47.00 Insomnia, unspecified; R06.83 Snoring | CPT/HCPCS: 95810 ==

== ENCOUNTER 2020-09-12 17:01 | Outpatient (CLI) | payer MEDICAID ==
--- NOTE | 2020-09-12 16:10 | SLEEP CARE CONSULTATION ---
Information from patient questionnaire entered by Aislinn Pack. I have reviewed and concur with the information entered by Aislinn Pack. This document represents the service I personally performed and the decisions made by , Nancy Kent ARNP. History of Present Illness Service Date and Time: 09/12/2020 1600 Initial [place] Sleepiness Scale score: 6 (in 2020) Current [place] Sleepiness Scale score: 3 Additional HPI information: RICHARD LOZANO returns via Telehealth visit for follow up and results of the recently performed polysomnography. The patient was informed of the following findings: patient had no significant sleep disordered breathing with an average AHI of 0.1 and alina oxygen saturation of 92%. I explained the pathophysiology behind obstructive sleep apnea. Patient does not have sleep apnea and was advised how weight gain could increase the risk of developing sleep apnea in the future. Patient has light to moderate snoring. Snoring can be reduced by weight loss. Weight loss is best achieved with diet co nsult. Patient instructed to contact PCP for referral. Snoring can also be treated with an oral appliance from a dentist. Advised to check insurance coverage. In addition, an ENT evaluation can be do to see if other treatment is indicated. Patient counseled not drink alcohol less than 4 hours before bedtime as it can increase snoring and apnea. Patient was cautioned about risks of drowsy driving until sleepiness symptoms resolve. Sleep Study - Results Type of Sleep Study: Polysomnography Prior sleep studies: No Polysomnography/Home Sleep Study results: IMPRESSION: The quality of the study is good. The patient had normal sleep efficiency. The sleep architecture was normal as well. Respiratory monitoring showed no significant sleep disordered breathing (AHI = 0.1) or hypoxia (alina oxygen saturation of 92%). The patient slept adequately in supine position (supine AHI = 0.3; nonsupine = 0.00). Snore was light to moderate in intensity. There was no significant periodic leg movement of sleep. Cardiac rhythm was normal sinus rhythm without significant arrhythmia. No abnormal behavior (parasomnia) observed during the night. Physical Exam Vital signs obtained and entered by: Telehealth visit to limit exposure during Covid pandemic Height: 5 ft 3 in Impression and Plan 1. Snoring but no significant sleep disordered breathing. Patient advised that often weight loss will reduce snoring as well as apnea risk. An oral appliance can also be used for snoring. This would require a dental consultation. Patient cautioned not to use other online appliances as can cause bite issues. A list of accredited dentists in area and one local dentist who makes oral appliances given. Patient is advised to check if insurance will cover. An ENT consult can also be helpful to determine if any other treatment is an option. Patient concerned about still waking up 3-4 times at night which reduces her sleep time. She does have some issues with anxiety which may be contributing to her waking up, interrupting her sleep. I encouraged her to discuss this with her PCP to see if treatment of anxiety might help her sleep better. She voiced understanding and agreement to plan. * Attempt to lose weight * Avoid alcohol consumption near bedtime * The patient is cautioned about driving until sleepiness is completely resolved. * Return as needed. Visit Type: Telehealth Video Video Type: Doximity Patient Location: Work Location of Provider: Office Patient agrees and consents to this telehealth visit type: Yes Patient agrees to have their insurance billed: Yes Time Spent with Patient (minutes): 15 Provider Statement: I spent 100% of the Telehealth Video Call with the patient with greater than 50% spent counseling the patient and coordination of care.
== END 2020-09-12 17:02 | disposition home or self-care (01) ==
LOC: SC 17:01
PROVIDERS: ATTEND Nurse Practitioner Family
DX: R06.83 Snoring (principal)

== ENCOUNTER 2021-02-25 18:22 | Emergency (ER) | payer MEDICAID ==
--- OUTSIDE RECORDS SUMMARY | 2021-02-25 18:26 | EXTERNAL MEDICAL SUMMARY RPT | Continuity of Care Document ---
:1990 Demographics Phone Unavailable Preferred Language Thai Marital Status Unknown Anabaptist Affiliation Unknown Race Unknown Ethnic Group Unknown Author Organization [place] Address [address] [phone] Phone Care Team Providers Name Role Phone Katus Unavailable Unavailable Allergies Encounters Medications Problems Procedures date description facility 20210104 [facility] Results Vital Signs date measurement value source 20210104 weight_standard 124.98 lb 20210104 weight_metric 56.69 kg 20210104 temperature_standard 98 F 20210104 temperature_metric 36.67 C 20210104 respiration_rate 18 /min 20210104 height_standard 63 in 20210104 height_metric 160.02 cm 20210104 heart_rate 76 /min 20210104 BP_systolic 108 mm[Hg] 20210104 BP_diastolic 70 mm[Hg] 20210104 BMI 22.1 kg/m2
[2021-02-25] MEDS ORDERED: ONDANSETRON 4 MG/2 ML VIAL IM STA (19:08)
[2021-02-25] MEDS ORDERED: KETOROLAC 60 MG/2 ML VIAL IM STA (19:08)
[2021-02-25] MEDS ORDERED: HYDROmorphone 1 MG/ML CARPUJECT IM STA ×2 (19:08→20:24)
[2021-02-25] MEDS ORDERED: CYCLOBENZAPRINE 10 MG TABLET PO STA (19:09)
--- NOTE | 2021-02-25 19:11 | ED Physician Documentation ---
History of Present Illness - Stated complaint Stated Complaint: BACK PX - Chief complaint Chief Complaint: Trauma Ch/Bk - Additonal information Additional information: 30-year-old female presents emergency department for evaluation of acute low back pain. Reports it began this afternoon when she attempted to lift a heavy cinderblock. She felt a pop and pull in her mid spine that radiated down to her left leg. She now has some paresthesias in the left medial and lateral thigh as well as some in the right thigh. No loss of motor strength. No saddle anesthesia or bowel or bladder incontinence. In 2019 she did have a microdiscectomy at L4-L5. She is concerned that she may have exacerbated this. Patient has taken no meds prior to arrival. On evaluation she appears acutely uncomfortable sitting in a reclined position in triage chairs. Review of Systems Constitutional: denies: Fever Eyes: reports: Reviewed and negative Ears: reports: Reviewed and negative Nose: reports: Reviewed and negative Throat: reports: Reviewed and negative Cardiac: reports: Reviewed and negative Respiratory: reports: Reviewed and negative GI: reports: Reviewed and negative : reports: Reviewed and negative Skin: reports: Reviewed and negative Musculoskeletal: reports: Back pain, Extremity pain (Right leg left leg) Neurologic: reports: Reviewed and negative PD PAST MEDICAL HISTORY - Past Medical History Past Medical History: Yes Cardiovascular: None Respiratory: None Neuro: None Endocrine/Autoimmune: None GI: None 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: Ovarian cysts : Kidney stones HEENT: Chronic vision loss, Other Psych: Depression, Anxiety, Panic attacks Musculoskeletal: None Derm: None - Past Surgical History Past Surgical History: Yes Ortho: Spine surgery /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: Tubal ligation HEENT: Myringotomy (tubes), Other - Present Medications Home Medications: Ambulatory Orders Medication Instructions Recorded Confirmed Zolpidem [Ambien] 5 mg PO QPM PRN 10/28/16 02/25/21 diphenhydrAMINE [Benadryl] 25 mg PO Q4-6H PRN 12/23/18 02/25/21 Cyclobenzaprine [Flexeril] 10 mg PO TID PRN 6 Days #20 tablet 02/25/21 HYDROcod/ACETAM 5/325 [Waldo 5/325] 1 tablet PO BID #10 tablet 02/25/21 predniSONE [Deltasone] 40 mg PO DAILY 5 Days #10 tablet 02/25/21 - Allergies Allergies/Adverse Reactions: Allergies Allergy/AdvReac Type Severity Reaction Status Date / Time meperidine HCl * Allergy Mild Hives Verified 02/25/21 18:35 [From Demerol] - Social History Does the pt smoke?: No Smoking Status: Former smoker Does the pt drink ETOH?: Yes Does the pt have substance abuse?: No - Immunizations Immunizations are current?: Yes - POLST Patient has POLST: No PD ED PE EXPANDED - General General: Alert, In Pain - Cardiac Cardiac: Regular Rate, Radial strong equal, Pedal strong equal, Cap refill < 2 sec. No: Murmur Present - Respiratory Respiratory: Clear to ausultation elvia. No: Distress, Labored - Abdomen Abdomen: Normal Bowel sounds. No: Tender to palpation - Back Back: Soft tissue tenderness (Diffuse soft tissue tenderness across the lower lumbar paraspinous without erythema swelling or crepitus. No midline vertebral body tenderness elicited.), CVA TTP right, CVA TTP left, Other (Motor strength 5 of 5 bilateral lower extremities. Patient able to raise thighs against resistance. 2+ patellar reflexes bilaterally.). No: Vertebral tenderness - Neuro Neuro: Alert and Oriented X 3, CNII-XII intact - GCS Eye Opening: Spontaneous Motor: Obeys Commands Verbal: Oriented Total: 15 Results - Vitals Vitals: Vital Signs - 24 hr 02/25/21 18:35 Temperature 37.1 C Heart Rate 97 Respiratory 18 Rate Blood Pressure 99/67 O2 Saturation 100 Oxygen O2 Source Room air Departure - Departure Disposition: 01 Home, Self Care Clinical Impression: Acute low back pain Qualifiers: Back pain laterality: bilateral Sciatica presence: with sciatica Sciatica laterality: bilateral sciatica Qualified Code(s): M54.42 - Lumbago with sciatica, left side; M54.41 - Lumbago with sciatica, right side Condition: Stable Record reviewed to determine appropriate education?: Yes Follow-Up: Wendi Leon MD [Physician No Access] - Prescriptions: predniSONE [Deltasone] 40 mg PO DAILY 5 Days #10 tablet Cyclobenzaprine [Flexeril] 10 mg PO TID PRN 6 Days #20 tablet PRN Reason: Spasms HYDROcod/ACETAM 5/325 [Waldo 5/325] 1 tablet PO BID #10 tablet Comments: Carmelita I hope that your low back is feeling better soon. I would like you to fill the prescription for the prednisone and begin taking every day for the next 5 days. Your first dose was given here in the emergency department. I have also prescribed a limited amount of hydrocodone as well as Flexeril which is a muscle relaxer. Do not use the hydrocodone and Flexeril together they can be excessively sedating. Also do not drive if taking hydrocodone. I am prescribing a short course of narcotic pain medication for you. These are potentially dangerous and addictive medications that should be used carefully. These medications may constipate you. Take an [id number] stool softener (docusate) twice daily with plenty of water while taking these medications. If you go 24 hours without a bowel movement, take [id number] miralax, per package instructions. Do not drink or drive while taking these medications. If you received narcotic or sedating medications while in the emergency department, do not drive for 24 hours. Store this medication in a safe, secure place and out of reach of children. It is a violation of federal law to give or sell this medication to another person or to use in a manner other than prescribed. The ED will not refill narcotic prescriptions, including prescriptions lost or stolen. To dispose of unwanted medications: 1. [facility] at [address] in [place] has a medication drop box. They accept prescription medications (in pill form) Wednesday through Wednesday 9:00 a.m. to 5:00 p.m. 2. The [facility] Police Department accepts prescription medications (in pill form only) for disposal year round. Call for more information. 3. Contact the [facility] for the next [facility] sponsored prescription drug collection event. , [phone], or [phone]; Note that many narcotic pain relievers also contain Tylenol/acetaminophen. P lease ensure that your total dose of acetaminophen from all sources does not exceed 3 g (3000 mg) per day. Please call your back surgeon Dr. Leon and schedule follow-up as soon as possible. Return to the emergency department if you develop incontinence of bowel or bladder, cannot move your legs, develop fevers or have numbness in your genital area.
--- OUTSIDE RECORDS SUMMARY | 2021-02-25 19:40 | EXTERNAL MEDICAL SUMMARY RPT | Continuity of Care Document ---
:1990 Demographics Phone Unavailable Preferred Language Irish Marital Status Unknown Adventism Affiliation Unknown Race Unknown Ethnic Group Unknown Author Organization [place] Address [address] [phone] Phone Care Team Providers Name Role Phone Katus Unavailable Unavailable Allergies Encounters Medications Problems Procedures date description facility 20210104 [facility] Results Vital Signs date measurement value source 20210104 weight_standard 124.98 lb 20210104 weight_metric 56.69 kg 20210104 temperature_standard 98 F 20210104 temperature_metric 36.67 C 20210104 respiration_rate 18 /min 20210104 height_standard 63 in 20210104 height_metric 160.02 cm 20210104 heart_rate 76 /min 20210104 BP_systolic 108 mm[Hg] 20210104 BP_diastolic 70 mm[Hg] 20210104 BMI 22.1 kg/m2
[2021-02-25] MEDS ORDERED: predniSONE 20 MG TABLET PO STA (20:24)
[2021-02-25] MEDS ORDERED: ONDANSETRON ODT 4 MG TABLET TL STA (20:24)
[2021-02-25 20:53] VITALS: BP 112/62
== END 2021-02-25 20:51 | disposition home or self-care (01) ==
LOC: ED 18:22
DX: M54.42 Lumbago with sciatica, left side (principal); M54.41 Lumbago with sciatica, right side; Z87.891 Personal history of nicotine dependence
CPT/HCPCS: 96372; 99283; 99284; A9270; J1170; J7512; Q0162

== ENCOUNTER 2021-03-18 11:00 | Outpatient (CLI) | payer MEDICAID ==
[2021-03-18 19:26] LABS: BILIRUBIN,URINE NEGATIVE (NEGATIVE); GLUCOSE, URINE (UA) NEGATIVE (NEGATIVE); KETONES,URINE (UA) NEGATIVE (NEGATIVE); LEUKOCYTE ESTERASE, URINE NEGATIVE (NEGATIVE); NITRITE,URINE POSITIVE (NEGATIVE); OCCULT BLOOD,URINE NEGATIVE (NEGATIVE); PH,URINE 6.5 PH (5.0-7.5); PROTEIN,URINE NEGATIVE (NEGATIVE); UROBILINOGEN,URINE 0.2 (NORMAL) E.U./dL (NORMAL)
[2021-03-18 19:30] LABS: CLARITY,URINE CLOUDY (CLEAR)
[2021-03-18 19:52] LABS: BACTERIA,URINE Many /HPF (None Seen); RBC,URINE 0-5 /HPF (0-5); SQUAMOUS EPITHELIAL CELL,UR MOD Squamous (<= Few); WBC,URINE 0-3 /HPF (0-5)
== END 2021-03-18 23:59 | disposition home or self-care (01) ==
LOC: LAB.R 11:00
PROVIDERS: ATTEND Registered Nurse
DX: R30.0 Dysuria (principal)
CPT/HCPCS: 81001; 87086

== ENCOUNTER 2021-05-12 19:21 | Outpatient (CLI) | payer MEDICAID | END 2021-05-12 19:22 | disposition home or self-care (01) | LOC: COV 19:21 | PROVIDERS: ATTEND Family Medicine | DX: U07.1 COVID-19 (principal) ==

== ENCOUNTER 2021-08-05 07:51 | Outpatient (CLI) | payer MEDICAID ==
--- NOTE | 2021-08-05 08:40 | CARDIAC PROCEDURE NOTE ---
Stress Test Report Service Date: 08/05/21 Service Time: 08:00 Ordering Provider: Marcie Vee FNP-C Indication for Test: Recurrent syncopal episodes. Significant Medical History: -Carmelita is referred for stress testing after experiencing several intermittent, brief syncopal episodes over the past 8 years or so. She describes approximately 3 more concerning episodes, during which she fell with some minor trauma. The episodes occur under varying circumstances, sometimes following change in position (orthostatic), sometimes after being upright for a significant period of time, sometimes with activity. She describes a syndrome beginning with tingling in her feet, radiating proximally upwards to her head, and when global and severe, the onset of syncope. She awakens fairly quickly without sequelae such as confusion or incontinence. 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 She does not work out regularly given these obligations, but feels that her exercise tolerance remains intact. She denies concerning cardiovascular symptoms such as chest discomfort undue shortness of breath palpitations and edema. She has been trying to keep well-hydrated but may have an opportunity to add electrolyte-containing drinks, such as Gatorade. Cardiac Risk Factors: No history of hypertension, known dyslipidemia, diabetes. Former smoker, but quit 10 yrs ago. She is not aware of close family members with history of cardiovascular disease. Type of Stress Test: Exercise Treadmill Test (ETT) Procedure: -Exercise Treadmill Test- After signing informed consent, the patient performed treadmill exercise using a Torrey protocol. The patient exercised for 10 minutes 9 seconds and achieved a peak heart rate of 160 (85 percent predicted maximum heart rate for age), and an estimated workload of 12.1 METS. The test was terminated due to fatigue/shortness of breath following attainment of her target heart rate. Resting heart rate: 94 Peak heart rate: 160 Normal response to exercise. Resting BP: 104/73 Peak BP: 142/75 Normal BP response to exercise. Rhythm during exercise: Sinus rhythm throughout. Symptoms: Mild lightheadedness and foot tingling starting in stage 3, with lightheadedness resolving rapidly in recovery; "tingly legs" gradually resolved in recovery. EKG at rest showed normal sinus rhythm and is fully normal, including the QTc interval. EKG at peak stress showed J-point depression with upsloping ST segments, NOT meeting diagnostic criteria for ischemia. In Recovery heart rate and blood pressure appropriately decreased to near baseline levels. No imaging was ordered with this stress test. Issa Ayoub MD, was present throughout this treadmill stress study and supervised it in its entirety. Summary: 1) Exercise tolerance slightly above avereage for age as evidenced by MARY KAY of - 5%. 2) Normal resting EKG. No resting QTc prolongation present. 3) Adequate level of exercise was achieved on this treadmill stress test. Patient experienced her symptoms to a mild degree. 4) Normal BP response to exercise. 5) No ischemic changes by EKG criteria were seen at peak stress. CONCLUSIONS: 1) Low risk Torrey exercise treadmill test results. 2) Rapid recovery following syncopal episodes without sequelae and lack of history of serious injury suggest benign cause of syncope, for which we discussed the following recommendations: (a) be attentive to remaining well hydrated, with goal of ingesting nearly equivalent amounts overall of water and electrolyte containing drinks (e.g. Gatorade); (b) continue liberal intake of table salt; (c) try rebreathing in a "lunch type" brown paper bag at onset of tingling symptoms, as hyperventilation could be contributing to the episodes. 3) If episodes recur in spite of above hygenic measures, further evaluation by a polysilicon preparation worker (e.g. ambulatory rhythm monitoring, echocardiogram, tilt table testing) may be appropriate.
== END 2021-08-05 07:52 | disposition home or self-care (01) ==
LOC: DI 07:51
PROVIDERS: ATTEND Registered Nurse
DX: R55 Syncope and collapse (principal); Z87.891 Personal history of nicotine dependence
CPT/HCPCS: 93017

== ENCOUNTER 2021-12-02 11:40 | Outpatient (CLI) | payer MEDICAID ==
[2021-12-02 12:09] LABS: BASOPHILS # (AUTO) 0.1 10^3/uL (0.0-0.1); BASOPHILS % (AUTO) 0.9 %; EOSINOPHILS # (AUTO) 0.2 10^3/uL (0.0-0.7); EOSINOPHILS % (AUTO) 2.5 %; HCT - HEMATOCRIT 40.3 % (37.0-47.0); HGB - HEMOGLOBIN 13.7 g/dL (12.0-16.0); LYMPHOCYTES # (AUTO) 1.7 10^3/uL (1.5-3.5); MEAN CORPUSCULAR HEMOGLOBIN 28.7 pg (27.0-31.0); MEAN CORPUSCULAR VOLUME 84.5 fL (81.0-99.0); MEAN PLATELET VOLUME 10.2 fL (7.9-10.8); MONOCYTES # (AUTO) 0.5 10^3/uL (0.0-1.0); MONOCYTES % (AUTO) 6.3 %; NEUTROPHILS # (AUTO) 5.5 10^3/uL (1.5-6.6); PLT - PLATELET COUNT 284 10^3/uL (130-450); RED BLOOD COUNT 4.77 10^6/uL (4.20-5.40); RED CELL DISTRIBUTION WIDTH 13.4 % (12.0-15.0); WHITE BLOOD COUNT 7.9 x10^3/uL (4.8-10.8)
[2021-12-02 12:38] LABS: THYROID STIMULATING HORMONE 1.16 uIU/mL (0.34-5.60)
[2021-12-02 12:44] LABS: ALBUMIN 4.4 g/dL (3.2-5.5); ALBUMIN/GLOBULIN RATIO 1.6 (1.0-2.2); ALKALINE PHOSPHATASE 31 IU/L (42-121); ALT ALANINE AMINOTRANSFERASE 13 IU/L (10-60); AST ASPARTATE AMINOTRANSFERASE 15 IU/L (10-42); BILIRUBIN,TOTAL 0.9 mg/dL (0.2-1.0); BUN - BLOOD UREA NITROGEN 15 mg/dL (6-20); CARBON DIOXIDE - CO2 25 mmol/L (21-32); CHLORIDE 103 mmol/L (101-111); CHOL/HDL RATIO 2.8 (<4.4); CHOLESTEROL 164 mg/dL; CREATININE 0.7 mg/dL (0.4-1.0); GFR - MDRD 97 (>89); GLUCOSE 89 mg/dL (70-100); HDL CHOLESTEROL 59 mg/dL; LDL CHOLESTEROL,CALCULATED 97 mg/dL; LDL/HDL RATIO 1.6 (<4.4); POTASSIUM 4.2 mmol/L (3.5-5.0); SODIUM 138 mmol/L (135-145); TOTAL PROTEIN 7.1 g/dL (6.7-8.2); TRIGLYCERIDES 42 mg/dL; VLDL CHOLESTEROL 8 mg/dL
== END 2021-12-02 11:41 | disposition home or self-care (01) ==
LOC: LAB 11:40
PROVIDERS: ATTEND Registered Nurse
DX: Z13.228 Encounter for screening for other metabolic disorders (principal); Z13.220 Encounter for screening for lipoid disorders; Z13.29 Encounter for screening for other suspected endocrine disorder; Z13.0 Encounter for screening for diseases of the blood and blood-forming organs and certain disorders involving the immune mechanism
CPT/HCPCS: 36415; 80053; 80061; 83721; 84443; 85025

== ENCOUNTER 2022-09-11 13:38 | Outpatient (CLI) | payer BC | END 2022-09-11 13:39 | disposition home or self-care (01) | LOC: LAB 13:38 | PROVIDERS: ATTEND Nurse Practitioner | DX: N64.52 Nipple discharge (principal) | CPT/HCPCS: 36415; 84146 ==

== ENCOUNTER 2022-09-25 12:24 | Outpatient (CLI) | payer BC ==
--- NOTE | 2022-09-29 13:01 | Ultrasound Report ---
LIMITED ULTRASOUND OF LEFT BREAST: 09/25/2022 CLINICAL: Patient returns today to evaluate an asymmetry in the left breast. Comparison is made to exam dated: 09/25/2022 mammogram - [facility]. Color flow and real-time ultrasound of the left breast lower aspect and retroareolar regions were pe rformed. Hays scale images of the real-time examination were reviewed. No significant abnormalities were seen sonographically in the left breast. Specifically, no finding to correspond to the patient's palpable abnormalities in lower quadrants, or to explain nipple discha rge. IMPRESSION: PROBABLY BENIGN There is no sonographic correlate to the areas of clinical concern in the left breast, or explanation for nipple discharge. Discharge is likely physiologic based on description. A follow-up left mammogram and an ultrasound in 6 months is recommended to demonstrate stability giv en lack of comparisons and extremely dense breast tissue. Findings and recommendations were conveyed to the patient at time of exam. This exam was interpreted at Station ID: [id number]. Electronically Signed By: Sophia may/:09/25/2022 14:22:19 Ultrasound BI-RADS: 3 Probably benign BI-RADS CATEGORY: (3) - 3 Mammo and US [id number] 6 month follow-up LATERALITY: (L)
--- NOTE | 2022-09-29 13:01 | Ultrasound Report ---
LIMITED ULTRASOUND OF RIGHT BREAST: 09/25/2022 CLINICAL: Patient returns today to evaluate a focal asymmetries in the right breast. Comparison is made to exam dated: 09/25/2022 mammogram - [facility]. Real-time ultrasound of the right breast 8-9 o'clock region was performed. Hays scale images of the real-time examination were reviewed. No significant abnormalities were seen sonographically in the right breast. Specifically, no finding to correspond to the patient's mammographic abnormalities. IMPRESSION: PROBABLY BENIGN There is no sonographic correlate to the patient's mammographic abnormalities. A follow-up right mammogram and an ultrasound in 6 months is recommended to demonstrate stability gi keyana lack of comparison exams and extremely dense tissue. Findings and recommendations were conveyed to the patient at time of exam. This exam was interpreted at Station ID: [id number]. Electronically Signed By: Sophia may/:09/25/2022 14:20:10 Ultrasound BI-RADS: 3 Probably benign BI-RADS CATEGORY: (3) - 3 Mammo and US [id number] 6 month follow-up LATERALITY: (R)
--- NOTE | 2022-09-29 13:01 | Mammography Report ---
BILATERAL DIGITAL DIAGNOSTIC MAMMOGRAM 3D/2D WITH EXAGGERATED CC: 09/25/2022 CLINICAL: Baseline exam. Nipple discharge, left breast, not bloody. Palpable left breast lump by phys elderan. No prior exams were available for comparison. Both breasts are extremely dense, which lowers the sensitivity of mammography (category d />75% gland ular tissue). There is a 9 mm round asymmetry with an obscured and circumscribed margin in the right breast at 8 o' clock posterior depth. There also is a possible 9 mm round low density asymmetry with an obscured margin in the right breast at 8 o'clock middle depth. There is a possible 8 mm oval asymmetry with an obscured and circumscribed margin in the left breast at 6 o'clock anterior depth. No other significant masses or calcifications are seen in either breast. Specifically, no finding to correspond to the providers's lower quadrant palpable abnormalities. IMPRESSION: INCOMPLETE: NEEDS ADDITIONAL IMAGING EVALUATION The 9 mm round asymmetry in the right breast at 8 o'clock posterior depth is indeterminate. An ultra sound is recommended. The possible 9 mm round low density asymmetry in the right breast at 8 o'clock middle depth is indete rminate. An ultrasound is recommended. The possible 8 mm oval asymmetry in the left breast at 6 o'clock anterior depth is indeterminate. An ultrasound is recommended. Ultrasound of lower left breast is recommended due to providers indication of palpable abnormalities in these locations. Bilateral breast ultrasound was performed immediately following this exam. Based on the Tyrer Cuzick model (a risk assessment model) the patients lifetime risk is 11.5% and he r 10 year risk is 0.7%. According to the ACR, ACS, and NCCN guidelines, an annual breast MRI exam zeeshan ng with mammogram is recommended if the patients lifetime risk is 20% or greater. This exam was interpreted at Station ID: [id number]. NOTE: For mammograms, a report in lay terms will be sent to the patient. Approximately 15% of breast malignancies will not be visualized mammographically. In the management of a palpable breast mass, a negative mammogram must not discourage biopsy of a clinically suspicious lesion. Electronically Signed By: Sophia may/:09/25/2022 13:50:49 ACR BI-RADS Category 0: Incomplete 3340F PARENCHYMAL PATTERN: (VD) - The breast(s) demonstrate(s) extremely dense parenchyma, limiting the sen sitivity of mammography. BI-RADS CATEGORY: (0) - 0 Ultrasound [id number] Immediate follow-up LATERALITY: (B)
== END 2022-09-25 12:25 | disposition home or self-care (01) ==
LOC: DI 12:24
PROVIDERS: ATTEND Nurse Practitioner
DX: N64.52 Nipple discharge (principal); R92.8 Other abnormal and inconclusive findings on diagnostic imaging of breast

== ENCOUNTER 2023-03-04 07:49 | Outpatient (CLI) | payer BC ==
--- NOTE | 2023-03-04 10:53 | Ultrasound Report ---
LIMITED ULTRASOUND OF RIGHT BREAST: 03/04/2023 CLINICAL: Nipple discharge, both breasts, not bloody. Comparison is made to exams dated: 03/04/2023 mammogram, 09/25/2022 ultrasound, and 09/25/2022 mammogr [facility]. Ultrasound of the right breast retroareolar was performed. Hays scale images of the real-time examin ation were reviewed. IMPRESSION: PROBABLY BENIGN There is no abnormality seen in the right breast to correspond with the non-bloody discharge from the nipple, however, clinical correlation and clinical followup are recommended. A follow-up mammogram and possible ultrasound in 6 months are recommended to demonstrate stability of the bilateral mammographic asymmetries. This exam was interpreted at Station ID: [id number]. Electronically Signed By: Jayy Putnam M.D. /:03/04/2023 08:52:56 Ultrasound BI-RADS: 3 Probably benign BI-RADS CATEGORY: (3) - 3 Mammo and US [id number] 6 month follow-up LATERALITY: (B)
--- NOTE | 2023-03-04 10:53 | Ultrasound Report ---
LIMITED ULTRASOUND OF LEFT BREAST: 03/04/2023 CLINICAL: Nipple discharge, both breasts, not bloody. Comparison is made to exams dated: 03/04/2023 mammogram and 09/25/2022 ultrasound - [facility]. Ultrasound of the left breast retroareolar was performed. Hays scale images of the real-time examin ation were reviewed. IMPRESSION: PROBABLY BENIGN There is no abnormality seen in the left breast to correspond with the non-bloody discharge from the nipple, however, clinical correlation and clinical followup are recommended. A follow-up mammogram and possible ultrasound in 6 months are recommended to demonstrate stability of the bilateral mammographic asymmetries. This exam was interpreted at Station ID: [id number]. Electronically Signed By: Jayy Putnam M.D. lc/:03/04/2023 08:53:25 Ultrasound BI-RADS: 3 Probably benign BI-RADS CATEGORY: (3) - 3 Mammo and US [id number] 6 month follow-up LATERALITY: (B)
--- NOTE | 2023-03-04 10:53 | Mammography Report ---
BILATERAL DIGITAL DIAGNOSTIC MAMMOGRAM 3D/2D: 03/04/2023 CLINICAL: Patient returns for a 6 month follow up of bilateral breasts. Comparison is made to exam dated: 09/25/2022 mammogram - [facility]. Both breasts are extremely dense, which lowers the sensitivity of mammography (category d />75% gland ular tissue). There is a 9 mm round asymmetry with an obscured and circumscribed margin in the right breast at 8 o' clock posterior depth. There also is a possible 9 mm round low density asymmetry with an obscured margin in the right breast at 8 o'clock middle depth. There is a possible 8 mm oval asymmetry with an obscured and circumscribed margin in the left breast at 6 o'clock anterior depth. No other significant masses or calcifications are seen in either breast. IMPRESSION: INCOMPLETE: NEEDS ADDITIONAL IMAGING EVALUATION The 9 mm round asymmetry in the right breast at 8 o'clock posterior depth is stable. The possible 9 mm round low density asymmetry in the right breast at 8 o'clock middle depth is stable . The possible 8 mm oval asymmetry in the left breast at 6 o'clock anterior depth is stable. These had no previous sonographic correlate and are probably benign. There is no abnormality seen in either breast to correspond with the non-bloody discharge from the ni pple, however, ultrasound is recommended. Based on the Tyrer Cuzick model (a risk assessment model) the patients lifetime risk is 11.5% and he r 10 year risk is 0.7%. According to the ACR, ACS, and NCCN guidelines, an annual breast MRI exam zeeshan ng with mammogram is recommended if the patients lifetime risk is 20% or greater. This exam was interpreted at Station ID: [id number]. NOTE: For mammograms, a report in lay terms will be sent to the patient. Approximately 15% of breast malignancies will not be visualized mammographically. In the management of a palpable breast mass, a negative mammogram must not discourage biopsy of a clinically suspicious lesion. Electronically Signed By: Jayy Putnam M.D. lc/:03/04/2023 08:50:48 ACR BI-RADS Category 0: Incomplete 3340F PARENCHYMAL PATTERN: (VD) - The breast(s) demonstrate(s) extremely dense parenchyma, limiting the sen sitivity of mammography. BI-RADS CATEGORY: (0) - 0 Ultrasound [id number] Immediate follow-up LATERALITY: (B)
== END 2023-03-04 07:50 | disposition home or self-care (01) ==
LOC: DI 07:49
PROVIDERS: ATTEND Nurse Practitioner
DX: N64.52 Nipple discharge (principal)

== ENCOUNTER 2023-04-27 10:49 | Outpatient (CLI) | payer BC ==
[2023-04-27 11:04] LABS: BASOPHILS # (AUTO) 0.1 10^3/uL (0.0-0.1); EOSINOPHILS # (AUTO) 0.2 10^3/uL (0.0-0.7); EOSINOPHILS % (AUTO) 1.6 %; HCT - HEMATOCRIT 38.6 % (37.0-47.0); HGB - HEMOGLOBIN 13.1 g/dL (12.0-16.0); LYMPHOCYTES # (AUTO) 1.9 10^3/uL (1.5-3.5); MEAN CORPUSCULAR HEMOGLOBIN 28.6 pg (27.0-31.0); MEAN CORPUSCULAR HGB CONC 33.9 g/dL (32.0-36.0); MEAN CORPUSCULAR VOLUME 84.3 fL (81.0-99.0); MEAN PLATELET VOLUME 10.2 fL (7.9-10.8); MONOCYTES # (AUTO) 0.6 10^3/uL (0.0-1.0); MONOCYTES % (AUTO) 6.4 %; NEUTROPHILS # (AUTO) 6.6 10^3/uL (1.5-6.6); NEUTROPHILS % (AUTO) 70.5 %; PLT - PLATELET COUNT 312 10^3/uL (130-450); RED BLOOD COUNT 4.58 10^6/uL (4.20-5.40); WHITE BLOOD COUNT 9.4 x10^3/uL (4.8-10.8)
[2023-04-27 11:18] LABS: ALBUMIN/GLOBULIN RATIO 1.4 (1.0-2.2); ALKALINE PHOSPHATASE 41 IU/L (42-121); ALT ALANINE AMINOTRANSFERASE 9 IU/L (10-60); AST ASPARTATE AMINOTRANSFERASE 12 IU/L (10-42); BILIRUBIN,TOTAL 0.6 mg/dL (0.2-1.0); BUN - BLOOD UREA NITROGEN 11 mg/dL (6-20); CARBON DIOXIDE - CO2 28 mmol/L (21-32); CHLORIDE 106 mmol/L (101-111); CHOL/HDL RATIO 2.9 (<4.4); CHOLESTEROL 144 mg/dL; CREATININE 0.6 mg/dL (0.6-1.3); GFR - MDRD 114 (>89); GLUCOSE 95 mg/dL (74-104); HDL CHOLESTEROL 50 mg/dL; LDL CHOLESTEROL,CALCULATED 82 mg/dL; LDL/HDL RATIO 1.6 (<4.4); POTASSIUM 3.8 mmol/L (3.5-4.5); SODIUM 136 mmol/L (135-145); TOTAL PROTEIN 6.8 g/dL (6.4-8.9); TRIGLYCERIDES 59 mg/dL (48-352); VLDL CHOLESTEROL 12 mg/dL
== END 2023-04-27 10:50 | disposition home or self-care (01) ==
LOC: LAB 10:49
PROVIDERS: ATTEND Registered Nurse
DX: Z13.228 Encounter for screening for other metabolic disorders (principal); Z13.220 Encounter for screening for lipoid disorders; Z13.29 Encounter for screening for other suspected endocrine disorder; Z13.0 Encounter for screening for diseases of the blood and blood-forming organs and certain disorders involving the immune mechanism
CPT/HCPCS: 36415; 80053; 80061; 83721; 84443; 85025

== ENCOUNTER 2023-09-13 08:00 | Outpatient (CLI) | payer BC | END 2023-09-13 23:59 | disposition home or self-care (01) | LOC: LAB.S 08:00 | PROVIDERS: ATTEND Registered Nurse | DX: R82.79 Other abnormal findings on microbiological examination of urine (principal); R82.4 Acetonuria; R31.9 Hematuria, unspecified; R30.0 Dysuria | CPT/HCPCS: 87086 ==

== ENCOUNTER 2023-09-13 13:02 | Outpatient (CLI) | payer BC ==
[2023-09-13 13:22] LABS: BASOPHILS % (AUTO) 0.8 %; EOSINOPHILS # (AUTO) 0.1 10^3/uL (0.0-0.7); EOSINOPHILS % (AUTO) 1.4 %; HCT - HEMATOCRIT 35.6 % (37.0-47.0); HGB - HEMOGLOBIN 11.9 g/dL (12.0-16.0); LYMPHOCYTES # (AUTO) 1.6 10^3/uL (1.5-3.5); LYMPHOCYTES % (AUTO) 31.4 %; MEAN CORPUSCULAR HEMOGLOBIN 27.4 pg (27.0-31.0); MEAN CORPUSCULAR HGB CONC 33.4 g/dL (32.0-36.0); MEAN PLATELET VOLUME 11.2 fL (7.9-10.8); MONOCYTES # (AUTO) 0.4 10^3/uL (0.0-1.0); MONOCYTES % (AUTO) 7.8 %; NEUTROPHILS # (AUTO) 2.9 10^3/uL (1.5-6.6); NEUTROPHILS % (AUTO) 58.4 %; PLT - PLATELET COUNT 313 10^3/uL (130-450); RED BLOOD COUNT 4.34 10^6/uL (4.20-5.40); RED CELL DISTRIBUTION WIDTH 13.9 % (12.0-15.0)
[2023-09-13 13:31] LABS: ALBUMIN 4.3 g/dL (3.2-5.5); ALBUMIN/GLOBULIN RATIO 1.7 (1.0-2.2); BILIRUBIN,TOTAL 0.8 mg/dL (0.2-1.0); CALCIUM 9.7 mg/dL (8.5-10.3); CREATININE 0.6 mg/dL (0.6-1.3); TOTAL PROTEIN 6.8 g/dL (6.4-8.9)
[2023-09-13 13:39] LABS: ESTIMATED AVERAGE GLUCOSE 94 mg/dL (70-100); HEMOGLOBIN A1c% 4.9 % (4.27-6.07)
[2023-09-13 14:06] LABS: THYROID STIMULATING HORMONE 1.32 uIU/mL (0.34-5.60)
== END 2023-09-13 13:03 | disposition home or self-care (01) ==
LOC: LAB 13:02
PROVIDERS: ATTEND Registered Nurse
DX: R82.79 Other abnormal findings on microbiological examination of urine (principal); R82.4 Acetonuria; Z87.442 Personal history of urinary calculi; R31.9 Hematuria, unspecified
CPT/HCPCS: 36415; 80053; 83036; 84443; 85025

== ENCOUNTER 2023-09-13 16:22 | Emergency (ER) | payer BC ==
[2023-09-13] MEDS ORDERED: SODIUM CHLORIDE 0.9% 1,000 ML IV STA ×2 (16:52→18:36)
[2023-09-13] MEDS ORDERED: KETOROLAC 15 MG/ML VIAL IVP STA (16:54)
[2023-09-13 16:55] LABS: BASOPHILS % (AUTO) 0.5 %; EOSINOPHILS # (AUTO) 0.1 10^3/uL (0.0-0.7); EOSINOPHILS % (AUTO) 1.6 %; HCT - HEMATOCRIT 37.1 % (37.0-47.0); HGB - HEMOGLOBIN 12.7 g/dL (12.0-16.0); LYMPHOCYTES # (AUTO) 1.9 10^3/uL (1.5-3.5); LYMPHOCYTES % (AUTO) 32.3 %; MEAN CORPUSCULAR HEMOGLOBIN 27.7 pg (27.0-31.0); MEAN CORPUSCULAR HGB CONC 34.2 g/dL (32.0-36.0); MEAN CORPUSCULAR VOLUME 80.8 fL (81.0-99.0); MEAN PLATELET VOLUME 11.6 fL (7.9-10.8); MONOCYTES # (AUTO) 0.4 10^3/uL (0.0-1.0); MONOCYTES % (AUTO) 7.5 %; NEUTROPHILS # (AUTO) 3.3 10^3/uL (1.5-6.6); NEUTROPHILS % (AUTO) 57.8 %; PLT - PLATELET COUNT 357 10^3/uL (130-450); RED BLOOD COUNT 4.59 10^6/uL (4.20-5.40); RED CELL DISTRIBUTION WIDTH 14.1 % (12.0-15.0); WHITE BLOOD COUNT 5.7 x10^3/uL (4.8-10.8)
[2023-09-13] MEDS ORDERED: LIDOCAINE-MPF 2% 4.5 ML in SODIUM CHLORIDE 0.9% 50 ML IV STA (17:03)
[2023-09-13] MEDS ORDERED: ONDANSETRON 4 MG/2 ML VIAL IVP STA (17:03)
--- NOTE | 2023-09-13 17:06 | ED Physician Documentation ---
History of Present Illness - Stated complaint Stated Complaint: ABD PX - Chief complaint Chief Complaint: Abd Pain - History obtained from History obtained from: Patient, Family - History of Present Illness Timing: Today Pain level max: 9 Pain level now: 9 - Additonal information Additional information: Patient a 33-year-old female who presents to the emergency department with left flank pain that started today. Rated as a 9 out of 10. She states that she has had kidney stones in the past and this feels similar. She states that she has had blood in the urine for several weeks and that she is awaiting a CAT scan from her doctor. She has had nausea and vomiting today. No fevers. No chills. Denies any possibility of . No diarrhea or constipation. She states that she is on Ambien at home for sleep but denies any other medication use. 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: Ovarian cysts : Kidney stones HEENT: Chronic vision loss, Other Psych: Depression, Anxiety, Panic attacks Musculoskeletal: None Derm: None - Past Surgical History Past Surgical History: Yes Ortho: Spine surgery /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: Tubal ligation HEENT: Myringotomy (tubes), Other - Present Medications Home Medications: Ambulatory Orders Medication Instructions Recorded Confirmed Zolpidem [Ambien] 5 mg PO QPM PRN 10/28/16 02/25/21 diphenhydrAMINE [Benadryl] 25 mg PO Q4-6H PRN 12/23/18 02/25/21 Cyclobenzaprine [Flexeril] 10 mg PO TID PRN 6 Days #20 tablet 02/25/21 HYDROcod/ACETAM 5/325 [Mooers 5/325] 1 tablet PO BID #10 tablet 02/25/21 predniSONE [Deltasone] 40 mg PO DAILY 5 Days #10 tablet 02/25/21 Ondansetron Odt [Zofran] 4 mg TL Q6H PRN #10 tablet 09/13/23 Tamsulosin [Flomax] 0.4 mg PO DAILY #14 cap 09/13/23 oxyCODONE [Roxicodone] 5 - 10 mg PO Q6H PRN #14 tablet 09/13/23 MDD 6 - Allergies Allergies/Adverse Reactions: Allergies Allergy/AdvReac Type Severity Reaction Status Date / Time meperidine HCl * Allergy Mild Hives Verified 09/13/23 16:41 [From Demerol] - Social History Does the pt smoke?: No Smoking Status: Never smoker Does the pt drink ETOH?: Yes Does the pt have substance abuse?: No - Immunizations Immunizations are current?: Yes - POLST Patient has POLST: No PD ED PE NORMAL - Vitals Vital signs reviewed: Yes - General General: Alert and oriented X 3, No acute distress - HEENT HEENT: PERRL, Moist mucous membranes - Neck Neck: Supple, no meningeal sign - Cardiac Cardiac: RRR, Strong equal pulses - Respiratory Respiratory: No respiratory distress, Clear bilaterally - Abdomen Abdomen: Soft, Non tender, Non distended - Back Back: No CVA TTP, No spinal TTP - Derm Derm: Warm and dry, No rash - Extremities Extremities: No edema, No calf tenderness / cord - Neuro Neuro: Alert and oriented X 3 - Psych Psych: Normal mood, Normal affect Results - Vitals Vitals: Vital Signs - 24 hr 09/13/23 09/13/23 09/13/23 16:41 17:45 19:00 Temperature 36.8 C 36.7 C 36.6 C Heart Rate 78 69 79 Respiratory 20 14 14 Rate Blood Pressure 116/64 114/77 118/73 O2 Saturation 100 99 99 Oxygen O2 Source Room air - Labs Labs: Laboratory Tests 09/13/23 09/13/23 09/13/23 16:50 16:50 17:57 WBC 5.7 RBC 4.59 Hgb 12.7 Hct 37.1 MCV 80.8 L MCH 27.7 MCHC 34.2 RDW 14.1 Plt Count 357 MPV 11.6 H Neut # (Auto) 3.3 Lymph # (Auto) 1.9 Power # (Auto) 0.4 Eos # (Auto) 0.1 Baso # (Auto) 0.0 Absolute Nucleated RBC 0.00 Nucleated RBC % 0.0 Sodium 139 Potassium 3.9 Chloride 105 Carbon Dioxide 24 Anion Gap 10.0 BUN 10 Creatinine 0.6 Estimated GFR (MDRD) 114 Glucose 111 H Calcium 10.0 Total Bilirubin 0.9 AST 15 ALT 16 Alkaline Phosphatase 35 L Total Protein 7.2 Albumin 4.5 Globulin 2.7 Albumin/Globulin Ratio 1.7 Lipase 38 Urine Color YELLOW Urine Clarity CLEAR Urine pH 7.0 Ur Specific [place] 1.015 Urine Protein TRACE Urine Glucose (UA) NEGATIVE Urine Ketones 40 H Urine Occult Blood TRACE-INTA Urine Nitrite NEGATIVE Urine Bilirubin NEGATIVE Urine Urobilinogen 0.2 (NORMAL) Ur Leukocyte Esterase NEGATIVE Ur Microscopic Review NOT INDICATED Urine Culture Comments NOT INDICATED Urine HCG, Qual 09/13/23 18:08 WBC RBC Hgb Hct MCV MCH MCHC RDW Plt Count MPV Neut # (Auto) Lymph # (Auto) Power # (Auto) Eos # (Auto) Baso # (Auto) Absolute Nucleated RBC Nucleated RBC % Sodium Potassium Chloride Carbon Dioxide Anion Gap BUN Creatinine Estimated GFR (MDRD) Glucose Calcium Total Bilirubin AST ALT Alkaline Phosphatase Total Protein Albumin Globulin Albumin/Globulin Ratio Lipase Urine Color Urine Clarity Urine pH Ur Specific [place] Urine Protein Urine Glucose (UA) Urine Ketones Urine Occult Blood Urine Nitrite Urine Bilirubin Urine Urobilinogen Ur Leukocyte Esterase Ur Microscopic Review Urine Culture Comments Urine HCG, Qual NEGATIVE - Rads (name of study) CT abdomen pelvis Relevant Findings:: Final report received, See rad report PD Medical Decision Making - ED course Complexity details: reviewed results, re-evaluated patient, considered differential, d/w patient, d/w family ED course: 33-year-old female presents to the emergency department with left flank pain. No significant lab abnormalities. Urinalysis does not show any infection. CT scan shows a 4 mm proximal left ureteral stone. Mild hydronephrosis. Pain well-controlled with Toradol and IV lidocaine. She was given IV fluids as well. Will have her follow-up with urology for further care. Will place on Flomax, ibuprofen, nausea medication and pain medication for home. Afebrile. No signs of sepsis. Patient and family counseled regarding signs and symptoms for which I believe and urgent re-evaluation would be necessary. Patient with good underst anding of and agreement to plan and is comfortable going home at this time This document was made in part using voice recognition software. While efforts are made to proofread this document, sound alike and grammatical errors may occur. Departure - Departure Disposition: Home, Self Care Clinical Impression: Ureteral stone Condition: Good Instructions: ED Stone Renal W Colic Follow-Up: Marcie Vee ARNP [Primary Care Provider] - Within 1 week Juan Antonio Rowe MD [Provider Admit Priv/Credential] - Prescriptions: Tamsulosin [Flomax] 0.4 mg PO DAILY #14 cap oxyCODONE [Roxicodone] 5 - 10 mg PO Q6H PRN #14 tablet MDD 6 PRN Reason: pain Ondansetron Odt [Zofran] 4 mg TL Q6H PRN #10 tablet PRN Reason: Nausea / Vomiting Comments: Your prescriptions were sent to [facility] in [place]. Please use the medications as prescribed. You do have a 4 mm left ureteral stone. This should pass on its own. I have included contact information for urology today. Please make sure you are drinking plenty of water. As we discussed you can use ibuprofen to help relax the ureter and block the squeezing of the ureter as well. I am prescribing a short course of narcotic pain medication for you. These are potentially dangerous and addictive medications that should be used carefully. These medications may constipate you. Take an psgm-cdt-raeohwo stool softener (docusate) twice daily with plenty of water while taking these medications. If you go 24 hours without a bowel movement, take [id number]-[id number] miralax, per package instructions. Do not drink or drive while taking these medications. If you received narcotic or sedating medications while in the emergency department, do not drive for 24 hours. Store this medication in a safe, secure place and out of reach of children. It is a violation of federal law to give or sell this medication to another person or to use in a manner other than prescribed. The ED will not refill narcotic prescriptions, including prescriptions lost or stolen. To dispose of unwanted medications: 1. [facility] [address] in [place] has a medication drop box. They accept prescription medications (in pill form) Wednesday through Wednesday 9:00 a.m. to 5:00 p.m. 2. [facility] [employer] accepts prescription medications (in pill form only) for disposal year round. Call for more information. 3. Contact the [facility] for the next [facility] sponsored prescription drug collection event. , [phone], or [phone]; Forms: PCP List Discharge Date/Time: 09/13/23 20:06
[2023-09-13 17:15] LABS: ALBUMIN 4.5 g/dL (3.2-5.5); ALBUMIN/GLOBULIN RATIO 1.7 (1.0-2.2); BILIRUBIN,TOTAL 0.9 mg/dL (0.2-1.0); CREATININE 0.6 mg/dL (0.6-1.3); POTASSIUM 3.9 mmol/L (3.5-4.5); TOTAL PROTEIN 7.2 g/dL (6.4-8.9)
[2023-09-13] MEDS ORDERED: LIDOCAINE-MPF 2% 5 ML VIAL ONE (17:20)
[2023-09-13 17:53] VITALS: O2SAT 99
[2023-09-13 18:01] LABS: BILIRUBIN,URINE NEGATIVE (NEGATIVE); GLUCOSE, URINE (UA) NEGATIVE (NEGATIVE); KETONES,URINE (UA) 40 mg/dL (NEGATIVE); LEUKOCYTE ESTERASE, URINE NEGATIVE (NEGATIVE); NITRITE,URINE NEGATIVE (NEGATIVE); OCCULT BLOOD,URINE TRACE-INTA (NEGATIVE); PROTEIN,URINE TRACE mg/dL (NEGATIVE); UROBILINOGEN,URINE 0.2 (NORMAL) E.U./dL (NORMAL)
[2023-09-13 18:04] LABS: CLARITY,URINE CLEAR (CLEAR)
[2023-09-13] MEDS ORDERED: iohexoL-300 100 ML VIAL IVP ONE (18:21)
[2023-09-13 18:28] LABS: HCG UR QUAL NEGATIVE
--- NOTE | 2023-09-13 19:15 | CT Report ---
PROCEDURE: ABDOMEN/PELVIS W INDICATIONS: L sided abd pain/flank pain CONTRAST: 100mL Omni 300 TECHNIQUE: After the administration of intravenous contrast, 5 mm thick sections acquired from the diaphragms to the symphysis. 5 mm thick coronal and sagittal reformats were acquired. For radiation dose reducti on, the following was used: automated exposure control, adjustment of mA and/or kV according to ani ent size. COMPARISON: CT KUB 12/29/2018 FINDINGS: Image quality: No artifact from spinal fusion hardware limits evaluation of surrounding soft tissue. Lung bases and heart: Unremarkable. Liver: No solid mass. Gallbladder and biliary tree: No radiopaque stones or wall thickening. No biliary dilation. Spleen: No splenomegaly. Pancreas: No pancreatic ductal dilation. Adrenals: No adrenal nodule. Kidneys and ureters: There is an obstructing 4 mm calculus at the proximal left ureter resulting in m oderate upstream hydronephrosis (2/38). No hydronephrosis. No renal cystic lesion which requires foll ow up. No solid mass. Bowel and peritoneum: No bowel distension. No pathologic free fluid. Lymph nodes: No central or retroperitoneal adenopathy. Vessels: No infrarenal aortic aneurysm. PELVIS Reproductive organs: There is a 4.1 cm right adnexal cystic structure. Bladder: No abnormal wall thickening, accounting for underdistension. Pelvic lymph nodes: No pelvic adenopathy by size criteria. Bones: No acute or suspicious osseous abnormality. That is post posterior L5-S1 spinal fusion with in tervertebral disc spacer. Hardware is intact. Other: No significant ventral or inguinal hernia. IMPRESSION: Obstructing 4 mm left proximal ureteral calculus with moderate upstream hydronephrosis. Reviewed by: Maddie Moreno MD on 09/13/2023 7:13 PM PST Approved by: Maddie Moreno MD on 09/13/2023 7:13 PM PST Station ID: [id number]
[2023-09-13] MEDS ORDERED: oxyCODONE 5 MG TABLET PO STA (19:24)
[2023-09-13 19:39] VITALS: BP 118/73
== END 2023-09-13 20:06 | disposition home or self-care (01) ==
LOC: ED 16:22
DX: N13.2 Hydronephrosis with renal and ureteral calculous obstruction (principal); Z87.442 Personal history of urinary calculi; R82.79 Other abnormal findings on microbiological examination of urine; R82.4 Acetonuria; R31.9 Hematuria, unspecified; R30.0 Dysuria
CPT/HCPCS: 36415; 74177; 80053; 81003; 81025; 83036; 83690; 84443; 85025; 87086; 96374; 96375; 99284; A9270; J7040; Q9967; 81001

== ENCOUNTER 2023-09-23 10:44 | Outpatient (CLI) | payer BC ==
--- NOTE | 2023-09-24 11:48 | Mammography Report ---
BILATERAL DIGITAL DIAGNOSTIC MAMMOGRAM 3D/2D: 09/23/2023 CLINICAL: Patient returns for a 6 month follow up of bilateral breasts. Comparison is made to exams dated: 03/04/2023 mammogram, 09/25/2022 mammogram, 03/04/2023 ultrasound, an d 03/04/2023 ultrasound - [facility]. Both breasts are extremely dense, which lowers the sensitivity of mammography (category d />75% gland ular tissue). There is a possible asymmetry in the right breast at 8 o'clock middle depth. This is less prominent. There also is a possible asymmetry in the right breast at 8 o'clock posterior depth. This is not see n in additional views and is benign. There is a possible asymmetry in the left breast at 6 o'clock anterior depth. This is less prominent . No other significant masses or calcifications are seen in either breast. IMPRESSION: PROBABLY BENIGN Possible asymmetry in the right breast at 8 o'clock middle depth is probably benign. Possible asymmetry in the left breast at 6 o'clock anterior depth is probably benign. A follow-up mammogram in 12 months is recommended to demonstrate long-term stability. Patient reports persistent intermittent milky discharge bilaterally. This discharge is typically ying gn. Denies bloody or clear nipple discharge. Exam findings were conveyed to the patient. Patient is advised to monitor for significant change. Cli nical follow-up as needed. Based on the Tyrer Cuzick model (a risk assessment model) the patients lifetime risk is 11.4% and he r 10 year risk is 0.7%. According to the ACR, ACS, and NCCN guidelines, an annual breast MRI exam zeeshan ng with mammogram is recommended if the patients lifetime risk is 20% or greater. This exam was interpreted at Station ID: [id number]. NOTE: For mammograms, a report in lay terms will be sent to the patient. Approximately 15% of breast malignancies will not be visualized mammographically. In the management of a palpable breast mass, a negative mammogram must not discourage biopsy of a clinically suspicious lesion. Electronically Signed By: Howard Pascal M.D. slc/:09/23/2023 11:39:36 ACR BI-RADS Category 3: Probably benign 3343F PARENCHYMAL PATTERN: (VD) - The breast(s) demonstrate(s) extremely dense parenchyma, limiting the sen sitivity of mammography. BI-RADS CATEGORY: (3) - 3 Mammogram [id number] 12 month follow-up LATERALITY: (B)
== END 2023-09-23 10:45 | disposition home or self-care (01) ==
LOC: DI 10:44
PROVIDERS: ATTEND Nurse Practitioner
DX: N64.52 Nipple discharge (principal); R92.30 Dense breasts, unspecified; N63.20 Unspecified lump in the left breast, unspecified quadrant; N63.10 Unspecified lump in the right breast, unspecified quadrant

== ENCOUNTER → 2023-11-03 | Outpatient (CLI) | payer BC | LOC: LAB.R 08:00 | PROVIDERS: ATTEND Urology | DX: N20.0 Calculus of kidney (principal) ==

== ENCOUNTER 2023-11-10 08:00 | Outpatient (CLI) | payer BC | END 2023-11-10 23:59 | disposition home or self-care (01) | LOC: LAB.R 08:00 | PROVIDERS: ATTEND Urology | DX: N20.0 Calculus of kidney (principal) | CPT/HCPCS: 82365 ==

== ENCOUNTER 2024-03-17 09:21 | Outpatient (CLI) | payer BC ==
--- NOTE | 2024-03-17 10:19 | CT Report ---
PROCEDURE: Head WO INDICATIONS: CONTUSION TO SCALP TECHNIQUE: Noncontrast 4.5 mm thick angled axial sections acquired from the foramen magnum to the vertex. For r adiation dose reduction, the following was used: automated exposure control, adjustment of mA and/or kV according to patient size. COMPARISON: None. FINDINGS: Image quality: Excellent. CSF spaces: Basal cisterns are patent. No extra-axial fluid collections. Ventricles are normal in size and shape. Brain: No midline shift. No intracranial masses or hemorrhage. Hays-white matter interface is norm al. Skull and face: Calvarium and visualized facial bones are intact, without suspicious lesions. Sinuses: Visualized sinuses and mastoids are clear. IMPRESSION: No acute intracranial pathology. Reviewed by: Mary Queen MD, PhD on 03/17/2024 10:17 AM PDT Approved by: Mary Queen MD, PhD on 03/17/2024 10:17 AM PDT Station ID: [id number]
== END 2024-03-17 09:22 | disposition home or self-care (01) ==
LOC: DI 09:21
PROVIDERS: ATTEND Nurse Practitioner Family
DX: S00.03XA Contusion of scalp, initial encounter (principal); R51.9 Headache, unspecified

== ENCOUNTER 2024-05-16 06:57 | Outpatient (CLI) | payer BC ==
--- NOTE | 2024-05-16 12:27 | Ultrasound Report ---
PROCEDURE: Renal (Retroperitoneal) INDICATIONS: KIDNEY STONES TECHNIQUE: Real-time scanning was performed of the retroperitoneal organs, with image documentation. COMPARISON: 09/13/2023 FINDINGS: Kidneys: Kidneys are normal in size. Right kidney measures 9.5 cm long; left kidney measures 9.9 cm long. Right renal cortical thickness is 0.7 cm; left renal cortical thickness is 0.7 cm. No solid masses or hydronephrosis. Nonobstructing stone in the inferior calyx of the left kidney measuring 7 x 5 mm. Bladder: Decompressed. Miscellaneous: No free abdominal fluid. IMPRESSION: 7 x 5 mm nonobstructing left-sided nephrolithiasis. Reviewed by: Ladarius Barr MD on 05/16/2024 12:26 PM PDT Approved by: Ladarius Barr MD on 05/16/2024 12:26 PM PDT Station ID: [id number]
== END 2024-05-16 06:58 | disposition home or self-care (01) ==
LOC: DI 06:57
PROVIDERS: ATTEND Urology
DX: N20.0 Calculus of kidney (principal)

== ENCOUNTER 2024-06-12 07:54 | Outpatient (CLI) | payer BC ==
--- NOTE | 2024-06-12 12:17 | XRAY Report ---
PROCEDURE: Abdomen 1 V INDICATIONS: HISTORY OF NEPHROLITHIASIS TECHNIQUE: One view of the abdomen acquired. COMPARISON: CT abdomen/pelvis 09/13/2023. FINDINGS: Surgical changes and devices: Postsurgical changes from prior lower lumbar fusion. Bowel: Bowel gas pattern is normal. Soft tissues: 4 mm calculus projects over the left paraspinal region. Visualized solid organ contour s appear normal in size. Bones: No suspicious bony lesions. IMPRESSION: 4 mm calculus projects over the left kidney versus proximal left ureter. Reviewed by: John Bailey MD on 06/12/2024 12:16 PM PDT Approved by: John Bailey MD on 06/12/2024 12:16 PM PDT Station ID: [id number]
== END 2024-06-12 07:55 | disposition home or self-care (01) ==
LOC: DI 07:54
PROVIDERS: ATTEND Urology
DX: R93.5 Abnormal findings on diagnostic imaging of other abdominal regions, including retroperitoneum (principal)